=== PATIENT | male | born 1980 | race Two or more races ===

== ENCOUNTER 2023-05-09 22:47 | Inpatient (IN) | payer MEDICAID, OTHER ==
[~2023-05-09] VITALS: Ht 172.7 cm; Wt 100.2 kg
[2023-05-09] MEDS ORDERED: NALOXONE HCL 1MG/ML 2ML SYRINGE IV ONE ×2 (23:00→23:14)
[2023-05-09] MEDS ORDERED: NALOXONE HCL 1MG/ML 2ML SYRINGE ONE (23:00)
[2023-05-09 23:26] LABS: Basophils # (auto) 0.1 10 ^3/uL (0-0.2); Basophils % (auto) 0.5 % (0.0-2.0); Eosinophils # (auto) 0.2 10 ^3/uL (0-0.8); Eosinophils % (auto) 0.9 % (0.0-7.0); Hematocrit 44.4 % (41.0-53.0); Hemoglobin 14.7 g/dL (13.5-17.5); Lymphocytes # (auto) 3.4 10 ^3/uL (0.4-5.4); Lymphocytes % (auto) 16.2 % (10.0-50.0); Mean Corpuscular Hemoglobin 29.7 pg (28.0-32.0); Mean Corpuscular Hgb Conc. 33.1 g/dL (32.0-36.0); Mean Corpuscular Volume 89.8 fL (80.0-100.0); Monocytes % (auto) 4.7 % (0.0-12.0); Neutrophils # (auto) 16.3 10 ^3/uL (1.6-8.6); Neutrophils % (auto) 77.7 % (37.0-80.0); Red Blood Cells 4.94 10^6/uL (4.5-5.90); Red Cell Distribution Width 13.1 % (11.8-14.3)
[2023-05-09 23:44] LABS: Alanine Aminotransferase 151 U/L (7-40); Albumin 4.5 g/dL (3.2-4.8); Alkaline Phosphatase 135 U/L (46-116); Anion Gap 7 (5-15); Aspartate Aminotransferase 212 U/L (13-40); BUN/Creatinine Ratio 11.2 (10.0-20.0); Blood Alcohol < 3.0 mg/dL (<10); Blood Urea Nitrogen 10 mg/dL (9-23); Calcium 8.3 mg/dL (8.7-10.4); Carbon Dioxide 23 mmol/L (20-30); Chloride 110 mmol/L (98-107); Glucose 193 mg/dL (74-106); Potassium 3.7 mmol/L (3.5-5.1); Sodium 140 mmol/L (136-145)
[2023-05-09 23:45] LABS: Bilirubin, Total 0.4 mg/dL (0.2-1.0)
[2023-05-10] VITALS (13 sets, daily range): BP systolic 112–150; BP diastolic 33–52; PULSE 66–102; RESP 20–22; TEMP 98.9; O2SAT 86–97
[2023-05-10] MEDS ORDERED: ROCURONIUM 10MG/ML 10ML VIAL IV ONE
[2023-05-10] MEDS ORDERED: ETOMIDATE (2MG/ML) 20ML VIAL IV ONE
[2023-05-10] MEDS ORDERED: NALOXONE HCL 0.4 MG/ML VIAL IV ONE
[2023-05-10 00:09] LABS: INR 1.13 (0.9-1.15); Partial Thromboplastin Time 24.1 SEC (24.5-34.5); Prothrombin Time 11.8 sec (9.3-11.8)
[2023-05-10] MEDS: PROPOFOL 100 ML IV SCH (00:24)
[2023-05-10] MEDS ORDERED: ACETAMINOPHEN 650 MG RECT SUPP PR ONE (00:30)
[2023-05-10] MEDS ORDERED: PANTOPRAZOLE 40 MG/10 ML VIAL INJ IV ONE (00:30)
[2023-05-10] MEDS ORDERED: FUROSEMIDE 40 MG/4 ML VIAL IV ONE (00:30)
[2023-05-10] MEDS ORDERED: NITROGLYCERIN 0.2MG/HR TOPICAL PATCH TD ONE (00:30)
[2023-05-10] MEDS ORDERED: AZITHROMYCIN 500MG/ 250ML 250 ML IV ONE (00:30)
[2023-05-10] MEDS ORDERED: cefTRIAXone 1GM/50ML D5W 50 ML IV ONE (00:30)
[2023-05-10] MEDS ORDERED: ONDANSETRON HCL 4 MG/2 ML VIAL IV ONE (00:30)
[2023-05-10] MEDS ORDERED: CLINDAMYCIN 600MG IV 50 ML IV ONE (00:30)
[2023-05-10 01:07] LABS: Blood Alcohol < 3.0 mg/dL (<10); Magnesium 1.8 mg/dL (1.6-2.6)
[2023-05-10 01:17] LABS: Base Excess -5.4 mmol/L (-2.0-2.0)
[2023-05-10 01:21] LABS: INR 1.11 (0.9-1.15); Partial Thromboplastin Time 24.3 SEC (24.5-34.5); Prothrombin Time 11.6 sec (9.3-11.8)
[2023-05-10 01:23] LABS: Amphetamine Screen, Urine Neg (NEGATIVE); Benzodiazephine Screen, Urine Neg (NEGATIVE)
[2023-05-10 01:24] LABS: Barbiturate Scree,Urine Neg (NEGATIVE); Cannabinoid Screen, Urine Neg (NEGATIVE); Cocaine Screen, Urine Pos (NEGATIVE); Opiate Scree,Urine Pos (NEGATIVE); Phencyclidine Screen, Urine Neg (NEGATIVE)
[2023-05-10 01:28] LABS: Urine Bacteria NONE SEEN /hpf (None Seen); Urine Blood Negative /uL (Negative); Urine Clarity Clear (Clear); Urine Color Yellow (Yellow); Urine Hyaline Cast FEW /lpf (0 - 2); Urine Protein, UAD 1+ (Negative); Urine Specific Gravity 1.019 (1.001-1.035); Urine Urobilinogen Normal (Negative); Urine WBC 1 /hpf (0 - 3); Urine pH 5.5 (5.0-8.0)
[2023-05-10] MEDS: MIDAZOLAM DRIP 50 mg/50mL 50 ML IV SCH ×3 (01:28→21:15)
[2023-05-10 01:35] LABS: COVID19 ANTIGEN SOFIA FIA NEGATIVE (NEGATIVE); Rapid Influenza A Negative (Negative); Rapid Influenza B Negative (Negative)
[2023-05-10] MEDS ORDERED: ALBUMIN 25% 100 ML IV ONE (03:30)
[2023-05-10] MEDS: NOREPINEPHRINE 8 MG/250ML KIT 250 ML IV SCH ×2 (04:25→21:10)
[2023-05-10] MEDS ORDERED: NITROGLYCERIN 0.4 MG SL TAB SL PRN (04:45)
[2023-05-10] MEDS ORDERED: MORPHINE SULFATE INJ 2 MG/ml SYRG IV PRN (04:45)
[2023-05-10] MEDS ORDERED: ONDANSETRON HCL 4 MG/2 ML VIAL IV PRN (04:45)
[2023-05-10] MEDS ORDERED: DOCUSATE SOD 100 MG CAP PO PRN (04:45)
[2023-05-10] MEDS: SODIUM CHLOR 0.9% PF (SALINE LOCK) 10ML VIAL/SYR IV SCH ×3 (05:56→21:48)
[2023-05-10 06:09] LABS: Alanine Aminotransferase 107 U/L (7-40); Alkaline Phosphatase 91 U/L (46-116); Anion Gap 9 (5-15); Aspartate Aminotransferase 116 U/L (13-40); BUN/Creatinine Ratio 11.4 (10.0-20.0); Basophils # (auto) 0 10 ^3/uL (0-0.2); Basophils % (auto) 0.2 % (0.0-2.0); Blood Urea Nitrogen 14 mg/dL (9-23); Calcium 8.6 mg/dL (8.5-10.1); Carbon Dioxide 24 mmol/L (20-30); Chloride 110 mmol/L (98-107); Eosinophils # (auto) 0 10 ^3/uL (0-0.8); Eosinophils % (auto) 0.3 % (0.0-7.0); Glucose 106 mg/dL (74-106); Hematocrit 43.5 % (41.0-53.0); Hemoglobin 14.8 g/dL (13.5-17.5); Lymphocytes # (auto) 1.4 10 ^3/uL (0.4-5.4); Lymphocytes % (auto) 9.7 % (10.0-50.0); Mean Corpuscular Hemoglobin 30.5 pg (28.0-32.0); Mean Corpuscular Volume 89.7 fL (80.0-100.0); Monocytes # (auto) 0.7 10 ^3/uL (0-1.3); Neutrophils # (auto) 12.6 10 ^3/uL (1.6-8.6); Neutrophils % (auto) 84.8 % (37.0-80.0); Nucleated Red Blood Cells % 0.1 %; Potassium 3.8 mmol/L (3.5-5.1); Red Blood Cells 4.85 10^6/uL (4.5-5.90); Red Cell Distribution Width 13.1 % (11.8-14.3); Sodium 143 mmol/L (136-145); White Blood Cell 14.9 10^3/uL (4.4-10.8)
[2023-05-10 06:10] LABS: Bilirubin, Total 0.7 mg/dL (0.2-1.0); Total Protein 6.1 g/dL (5.7-8.2)
[2023-05-10 06:12] LABS: Free T3 3.05 pg/mL (2.3-4.2); Free T4 (Free Thyroxine) 1.05 ng/dL (0.89-1.76)
[2023-05-10 06:48] LABS: Base Excess -5.7 mmol/L (-2.0-2.0)
[2023-05-10] MEDS ORDERED: cefTRIAXone 1GM/50ML D5W 50 ML IV SCH (09:00)
[2023-05-10] MEDS: HEPARIN SODIUM (PORCINE) 5000 UNITS/ML 1ML VIAL SC SCH ×2 (10:47→22:25)
[2023-05-10] MEDS: AZITHROMYCIN 500MG/ 250ML 250 ML IV SCH (10:47)
[2023-05-10] MEDS: FAMOTIDINE (10MG/ML) 2ML VL IV SCH ×2 (10:47→22:28)
[2023-05-10] MEDS: IBUPROFEN 100MG/5ML ORAL SUSP 100 MG/5 ML UD NG PRN (12:01)
[2023-05-10] MEDS: PIPERACILLIN-TAZOB 3.375GM 100 ML IV SCH ×2 (14:24→22:25)
[2023-05-10 19:52] LABS: Base Excess -2.2 mmol/L (-2.0-2.0)
[2023-05-10] MEDS: ATORVASTATIN 20 MG TAB PO SCH (22:25)
[2023-05-11] VITALS (15 sets, daily range): BP systolic 100–129; BP diastolic 23–95; PULSE 56–134; RESP 22; O2SAT 95–98
[2023-05-11] MEDS: MIDAZOLAM DRIP 50 mg/50mL 50 ML IV SCH ×7 (00:05→23:57)
[2023-05-11] MEDS: PROPOFOL 100 ML IV SCH ×4 (00:44→22:46)
[2023-05-11] MEDS ORDERED: ACETAMINOPHEN 650 MG RECT SUPP PR ONE (01:30)
[2023-05-11] MEDS: IBUPROFEN 100MG/5ML ORAL SUSP 100 MG/5 ML UD NG PRN ×2 (02:38→19:00)
[2023-05-11] MEDS ORDERED: AMIODARONE BOLUS KIT 100 ML IV ONE (03:00)
[2023-05-11] MEDS: MAGNESIUM SULFATE 1GM/100ML 100 ML IV SCH ×2 (03:10→04:00)
[2023-05-11] MEDS ORDERED: AMIODARONE 450mg/250ml AE 250 ML IV SCH ×2 (03:15→09:15)
[2023-05-11] MEDS: SODIUM CHLOR 0.9% PF (SALINE LOCK) 10ML VIAL/SYR IV SCH ×3 (05:14→22:14)
[2023-05-11 06:26] LABS: Basophils # (auto) 0 10 ^3/uL (0-0.2); Basophils % (auto) 0.2 % (0.0-2.0); Eosinophils # (auto) 0.3 10 ^3/uL (0-0.8); Eosinophils % (auto) 1.3 % (0.0-7.0); Hematocrit 38.7 % (41.0-53.0); Hemoglobin 12.8 g/dL (13.5-17.5); Lymphocytes # (auto) 3.9 10 ^3/uL (0.4-5.4); Mean Corpuscular Hemoglobin 29.7 pg (28.0-32.0); Mean Corpuscular Hgb Conc. 33.1 g/dL (32.0-36.0); Mean Corpuscular Volume 89.5 fL (80.0-100.0); Monocytes # (auto) 0.9 10 ^3/uL (0-1.3); Monocytes % (auto) 4.7 % (0.0-12.0); Neutrophils # (auto) 14.5 10 ^3/uL (1.6-8.6); Neutrophils % (auto) 73.8 % (37.0-80.0); Nucleated Red Blood Cells % 0.1 %; Red Blood Cells 4.33 10^6/uL (4.5-5.90); Red Cell Distribution Width 13.5 % (11.8-14.3); White Blood Cell 19.6 10^3/uL (4.4-10.8)
[2023-05-11] MEDS: PIPERACILLIN-TAZOB 3.375GM 100 ML IV SCH ×3 (06:31→22:31)
[2023-05-11 06:49] LABS: Alanine Aminotransferase 56 U/L (7-40); Albumin 3.6 g/dL (3.2-4.8); Alkaline Phosphatase 82 U/L (46-116); Anion Gap 8 (5-15); Aspartate Aminotransferase 28 U/L (13-40); BUN/Creatinine Ratio 14.4 (10.0-20.0); Bilirubin, Total 0.6 mg/dL (0.2-1.0); Blood Urea Nitrogen 19 mg/dL (9-23); Calcium 8.7 mg/dL (8.5-10.1); Carbon Dioxide 24 mmol/L (20-30); Chloride 109 mmol/L (98-107); Glucose 130 mg/dL (74-106); Potassium 3.3 mmol/L (3.5-5.1); Sodium 141 mmol/L (136-145); Total Protein 5.6 g/dL (5.7-8.2)
[2023-05-11 06:57] LABS: CRP High Sensitivity 18.57 mg/dL (<1.0)
[2023-05-11 07:16] LABS: Magnesium 2.3 mg/dL (1.6-2.6)
[2023-05-11 08:09] LABS: Base Excess -0.3 mmol/L (-2.0-2.0)
[2023-05-11] MEDS: AZITHROMYCIN 500MG/ 250ML 250 ML IV SCH (11:36)
[2023-05-11] MEDS: FAMOTIDINE (10MG/ML) 2ML VL IV SCH ×2 (11:36→22:13)
[2023-05-11] MEDS: HEPARIN SODIUM (PORCINE) 5000 UNITS/ML 1ML VIAL SC SCH ×2 (11:37→22:33)
[2023-05-11] MEDS ORDERED: AMIODARONE HCL 200 MG TAB GT ONE (15:30)
[2023-05-11] MEDS: POTASSIUM CHL 20MEQ/100ML 100 ML IV SCH ×3 (16:14→20:01)
[2023-05-11] MEDS: AMIODARONE HCL 200 MG TAB GT SCH (22:12)
[2023-05-11] MEDS: ATORVASTATIN 20 MG TAB PO SCH (22:15)
[2023-05-12] VITALS (13 sets, daily range): BP systolic 120–173; BP diastolic 44–71; PULSE 60–79; RESP 22; O2SAT 95–98
[2023-05-12] MEDS: NOREPINEPHRINE 8 MG/250ML KIT 250 ML IV SCH (04:15)
[2023-05-12] MEDS: MIDAZOLAM DRIP 50 mg/50mL 50 ML IV SCH ×3 (04:18→18:56)
[2023-05-12 04:24] LABS: Basophils # (auto) 0 10 ^3/uL (0-0.2); Basophils % (auto) 0.2 % (0.0-2.0); Eosinophils # (auto) 0.3 10 ^3/uL (0-0.8); Eosinophils % (auto) 2.6 % (0.0-7.0); Hematocrit 34.5 % (41.0-53.0); Hemoglobin 11.5 g/dL (13.5-17.5); Lymphocytes # (auto) 2.3 10 ^3/uL (0.4-5.4); Lymphocytes % (auto) 17.4 % (10.0-50.0); Mean Corpuscular Hemoglobin 29.5 pg (28.0-32.0); Mean Corpuscular Hgb Conc. 33.3 g/dL (32.0-36.0); Mean Corpuscular Volume 88.6 fL (80.0-100.0); Monocytes # (auto) 0.7 10 ^3/uL (0-1.3); Monocytes % (auto) 5.7 % (0.0-12.0); Neutrophils # (auto) 9.8 10 ^3/uL (1.6-8.6); Neutrophils % (auto) 74.1 % (37.0-80.0); Red Blood Cells 3.89 10^6/uL (4.5-5.90); Red Cell Distribution Width 13.5 % (11.8-14.3); White Blood Cell 13.2 10^3/uL (4.4-10.8)
[2023-05-12 04:54] LABS: Chloride 109 mmol/L (98-107); Potassium 3.7 mmol/L (3.5-5.1); Sodium 140 mmol/L (136-145)
[2023-05-12 04:55] LABS: Anion Gap 6 (5-15); Calcium 8.5 mg/dL (8.7-10.4); Carbon Dioxide 25 mmol/L (20-30)
[2023-05-12 05:00] LABS: BUN/Creatinine Ratio 14.9 (10.0-20.0); Blood Urea Nitrogen 23 mg/dL (9-23); Glucose 96 mg/dL (74-106)
[2023-05-12 05:01] LABS: Magnesium 2.1 mg/dL (1.6-2.6)
[2023-05-12] MEDS: SODIUM CHLOR 0.9% PF (SALINE LOCK) 10ML VIAL/SYR IV SCH ×3 (05:41→22:10)
[2023-05-12] MEDS: PIPERACILLIN-TAZOB 3.375GM 100 ML IV SCH ×3 (05:42→22:10)
[2023-05-12] MEDS: PROPOFOL 100 ML IV SCH ×2 (06:42→22:59)
[2023-05-12 07:11] LABS: Base Excess -1.7 mmol/L (-2.0-2.0)
[2023-05-12] MEDS: FAMOTIDINE (10MG/ML) 2ML VL IV SCH ×2 (09:55→22:10)
[2023-05-12] MEDS: AZITHROMYCIN 500MG/ 250ML 250 ML IV SCH (09:56)
[2023-05-12] MEDS: AMIODARONE HCL 200 MG TAB GT SCH ×2 (09:56→22:00)
[2023-05-12] MEDS: HEPARIN SODIUM (PORCINE) 5000 UNITS/ML 1ML VIAL SC SCH ×2 (09:56→22:12)
[2023-05-12] MEDS ORDERED: CLINIMIX PER PHARMACY 0 ML IV SCH (15:00)
[2023-05-12] MEDS ORDERED: AMINO ACID INFUSION IN D10W 1,000 ML IV NR (20:00)
[2023-05-12] MEDS ORDERED: DEXTROSE (50%) 50ML SYRG IV SCH (20:00)
[2023-05-12] MEDS: ATORVASTATIN 20 MG TAB PO SCH (22:10)
[2023-05-13] VITALS (63 sets, daily range): BP systolic 117–203; BP diastolic 36–83; PULSE 54–95; RESP 18–28; TEMP 97.7–99.9; O2SAT 92–100
[2023-05-13] MEDS ORDERED: hydrALAZINE HCL 20 MG/ML VL IV ONE (01:15)
[2023-05-13] MEDS: IBUPROFEN 100MG/5ML ORAL SUSP 100 MG/5 ML UD NG PRN (02:22)
[2023-05-13] MEDS ORDERED: dilTIAZem 25 MG/5 ML VIAL IV ONE ×2 (02:43→02:45)
[2023-05-13] MEDS: fentaNYL Drip 2500mCg/250mlNS 250 ML IV SCH (03:11)
[2023-05-13] MEDS ORDERED: ACETAMINOPHEN 650 MG RECT SUPP PR PRN (03:15)
[2023-05-13] MEDS: PROPOFOL 100 ML IV SCH ×3 (03:22→18:18)
[2023-05-13] MEDS: NOREPINEPHRINE 8 MG/250ML KIT 250 ML IV SCH (04:15)
[2023-05-13] MEDS: ACCU-CHEK COMFORT CURVE STRIP VI SCH ×4 (06:00→17:56)
[2023-05-13] MEDS: InsuLIN REG 1unit/0.01ml Soln (100units/ml) SC SCH ×4 (06:00→17:56)
[2023-05-13] MEDS: SODIUM CHLOR 0.9% PF (SALINE LOCK) 10ML VIAL/SYR IV SCH ×3 (06:12→21:27)
[2023-05-13 06:26] LABS: Alanine Aminotransferase 30 U/L (7-40); Albumin 3.7 g/dL (3.2-4.8); Alkaline Phosphatase 86 U/L (46-116); Anion Gap 7 (5-15); Aspartate Aminotransferase 18 U/L (13-40); Bilirubin, Total 0.6 mg/dL (0.2-1.0); Blood Urea Nitrogen 15 mg/dL (9-23); Calcium 8.8 mg/dL (8.5-10.1); Carbon Dioxide 25 mmol/L (20-30); Chloride 109 mmol/L (98-107); Glucose 120 mg/dL (74-106); Phosphorus 2.5 mg/dL (2.4-5.1); Potassium 3.4 mmol/L (3.5-5.1); Sodium 141 mmol/L (136-145); Triglycerides 212 mg/dL (< 150)
[2023-05-13 06:28] LABS: Basophils # (auto) 0 10 ^3/uL (0-0.2); Basophils % (auto) 0.2 % (0.0-2.0); Eosinophils # (auto) 0.2 10 ^3/uL (0-0.8); Eosinophils % (auto) 1.8 % (0.0-7.0); Hematocrit 35.1 % (41.0-53.0); Hemoglobin 11.8 g/dL (13.5-17.5); Lymphocytes # (auto) 1.4 10 ^3/uL (0.4-5.4); Lymphocytes % (auto) 11.8 % (10.0-50.0); Mean Corpuscular Hemoglobin 30.1 pg (28.0-32.0); Mean Corpuscular Hgb Conc. 33.6 g/dL (32.0-36.0); Mean Corpuscular Volume 89.7 fL (80.0-100.0); Monocytes # (auto) 0.8 10 ^3/uL (0-1.3); Monocytes % (auto) 6.5 % (0.0-12.0); Neutrophils # (auto) 9.8 10 ^3/uL (1.6-8.6); Neutrophils % (auto) 79.7 % (37.0-80.0); Nucleated Red Blood Cells % 0.1 %; Red Blood Cells 3.92 10^6/uL (4.5-5.90); Red Cell Distribution Width 13.4 % (11.8-14.3); White Blood Cell 12.3 10^3/uL (4.4-10.8)
[2023-05-13] MEDS: PIPERACILLIN-TAZOB 3.375GM 100 ML IV SCH ×3 (06:38→22:40)
[2023-05-13] MEDS: MIDAZOLAM DRIP 50 mg/50mL 50 ML IV SCH ×3 (06:39→21:30)
[2023-05-13 07:06] LABS: Magnesium 2.1 mg/dL (1.6-2.6)
[2023-05-13 08:37] LABS: Base Excess -1.5 mmol/L (-2.0-2.0)
[2023-05-13] MEDS: AMIODARONE HCL 200 MG TAB GT SCH ×2 (10:00→21:55)
[2023-05-13] MEDS: FAMOTIDINE (10MG/ML) 2ML VL IV SCH ×2 (11:01→22:17)
[2023-05-13] MEDS: HEPARIN SODIUM (PORCINE) 5000 UNITS/ML 1ML VIAL SC SCH (11:04)
[2023-05-13] MEDS: POTASSIUM CHL 20MEQ/100ML 100 ML IV SCH ×3 (11:05→13:55)
[2023-05-13] MEDS: AZITHROMYCIN 500MG/ 250ML 250 ML IV SCH (12:37)
[2023-05-13 16:53] LABS: Hepatitis B Core Total AB Negative (Negative)
[2023-05-13 16:54] LABS: Hepatitis A Total Antibody Positive (Negative); Hepatitis B Surface Antibody Negative (Negative); Hepatitis B Surface Antigen Negative (Negative); Hepatitis C Antibody Negative (Negative)
[2023-05-13] MEDS ORDERED: ENOXAPARIN SOD 40 MG/0.4 ML SYRINGE SC ONE (21:00)
[2023-05-13] MEDS: hydrALAZINE HCL 20 MG/ML VL IV PRN (21:09)
[2023-05-13] MEDS: ATORVASTATIN 20 MG TAB PO SCH (21:55)
[2023-05-14] VITALS (108 sets, daily range): BP systolic 102–222; BP diastolic 40–118; PULSE 61–154; RESP 13–39; TEMP 98.2–100.6; O2SAT 92–100
[2023-05-14] MEDS: PROPOFOL 100 ML IV SCH ×3 (02:16→23:21)
[2023-05-14] MEDS: fentaNYL Drip 2500mCg/250mlNS 250 ML IV SCH (02:45)
[2023-05-14] MEDS: NOREPINEPHRINE 8 MG/250ML KIT 250 ML IV SCH (04:15)
[2023-05-14 04:25] LABS: Alanine Aminotransferase 20 U/L (7-40); Alkaline Phosphatase 86 U/L (46-116); Anion Gap 7 (5-15); Aspartate Aminotransferase 15 U/L (13-40); BUN/Creatinine Ratio 13.6 (10.0-20.0); Blood Urea Nitrogen 12 mg/dL (9-23); Calcium 8.5 mg/dL (8.7-10.4); Carbon Dioxide 25 mmol/L (20-30); Chloride 109 mmol/L (98-107); Magnesium 1.8 mg/dL (1.6-2.6); Potassium 3.7 mmol/L (3.5-5.1); Sodium 141 mmol/L (136-145)
[2023-05-14 04:26] LABS: Albumin 3.7 g/dL (3.2-4.8); Bilirubin, Total 0.6 mg/dL (0.2-1.0); Phosphorus 3.4 mg/dL (2.4-5.1); Total Protein 5.9 g/dL (5.7-8.2)
[2023-05-14 04:30] LABS: Glucose 88 mg/dL (74-106)
[2023-05-14 04:46] LABS: Basophils # (auto) 0 10 ^3/uL (0-0.2); Basophils % (auto) 0.4 % (0.0-2.0); Eosinophils # (auto) 0.3 10 ^3/uL (0-0.8); Hematocrit 32.5 % (41.0-53.0); Hemoglobin 11.2 g/dL (13.5-17.5); Lymphocytes # (auto) 2.1 10 ^3/uL (0.4-5.4); Lymphocytes % (auto) 21.3 % (10.0-50.0); Mean Corpuscular Hemoglobin 30.6 pg (28.0-32.0); Mean Corpuscular Hgb Conc. 34.6 g/dL (32.0-36.0); Mean Corpuscular Volume 88.5 fL (80.0-100.0); Neutrophils # (auto) 6.6 10 ^3/uL (1.6-8.6); Neutrophils % (auto) 65.3 % (37.0-80.0); Nucleated Red Blood Cells % 0.1 %; Red Blood Cells 3.67 10^6/uL (4.5-5.90); Red Cell Distribution Width 12.9 % (11.8-14.3); White Blood Cell 10.1 10^3/uL (4.4-10.8)
[2023-05-14] MEDS: PIPERACILLIN-TAZOB 3.375GM 100 ML IV SCH ×3 (05:30→21:37)
[2023-05-14] MEDS: hydrALAZINE HCL 20 MG/ML VL IV PRN (05:32)
[2023-05-14] MEDS: SODIUM CHLOR 0.9% PF (SALINE LOCK) 10ML VIAL/SYR IV SCH ×3 (05:34→21:38)
[2023-05-14] MEDS: InsuLIN REG 1unit/0.01ml Soln (100units/ml) SC SCH ×5 (05:34→23:30)
[2023-05-14] MEDS: ACCU-CHEK COMFORT CURVE STRIP VI SCH ×5 (05:34→23:30)
[2023-05-14] MEDS ORDERED: MAGNESIUM SULFATE 1GM/100ML 100 ML IV ONE (08:30)
[2023-05-14] MEDS: AMIODARONE HCL 200 MG TAB GT SCH ×2 (09:27→21:38)
[2023-05-14] MEDS ORDERED: cloNIDine HCL 0.1 MG TAB PO PRN (09:30)
[2023-05-14] MEDS: AZITHROMYCIN 500MG/ 250ML 250 ML IV SCH (09:32)
[2023-05-14] MEDS: FAMOTIDINE (10MG/ML) 2ML VL IV SCH ×2 (09:32→21:37)
[2023-05-14] MEDS: METOPROLOL TARTRATE 25 MG TAB GT SCH ×2 (09:32→21:38)
[2023-05-14] MEDS: ENOXAPARIN SOD 40 MG/0.4 ML SYRINGE SC SCH (09:33)
[2023-05-14] MEDS ORDERED: LORazepam 2MG/ML-1ML VIAL IV ONE (11:00)
[2023-05-14] MEDS ORDERED: hydrALAZINE HCL 20 MG/ML VL IV ONE (11:00)
[2023-05-14] MEDS ORDERED: METOPROLOL TARTRATE 1MG/1ML-5ML VIAL IV ONE ×2 (11:50→12:30)
[2023-05-14] MEDS ORDERED: Jevity 1.2 Cal/Fiber 1 Liter GT SCH (16:00)
[2023-05-14] MEDS: chlordiazePOXIDE HCL 5 MG CAP PO SCH (21:38)
[2023-05-14] MEDS: ATORVASTATIN 20 MG TAB PO SCH (21:38)
[2023-05-15] VITALS (109 sets, daily range): BP systolic 86–225; BP diastolic 34–92; PULSE 74–120; RESP 11–34; TEMP 99.1–103.6; O2SAT 84–100
[2023-05-15] MEDS: MIDAZOLAM DRIP 50 mg/50mL 50 ML IV SCH ×2 (00:15→13:20)
[2023-05-15] MEDS: fentaNYL Drip 2500mCg/250mlNS 250 ML IV SCH ×2 (02:45→04:51)
[2023-05-15 03:20] LABS: Basophils # (auto) 0 10 ^3/uL (0-0.2); Basophils % (auto) 0.2 % (0.0-2.0); Eosinophils # (auto) 0.3 10 ^3/uL (0-0.8); Eosinophils % (auto) 1.6 % (0.0-7.0); Hematocrit 38.1 % (41.0-53.0); Hemoglobin 12.7 g/dL (13.5-17.5); Lymphocytes # (auto) 2.1 10 ^3/uL (0.4-5.4); Lymphocytes % (auto) 13.1 % (10.0-50.0); Mean Corpuscular Hemoglobin 29.9 pg (28.0-32.0); Mean Corpuscular Hgb Conc. 33.2 g/dL (32.0-36.0); Monocytes # (auto) 1.6 10 ^3/uL (0-1.3); Neutrophils # (auto) 11.9 10 ^3/uL (1.6-8.6); Neutrophils % (auto) 75.1 % (37.0-80.0); Red Blood Cells 4.23 10^6/uL (4.5-5.90); Red Cell Distribution Width 13.1 % (11.8-14.3); White Blood Cell 15.8 10^3/uL (4.4-10.8)
[2023-05-15 03:35] LABS: Alanine Aminotransferase 19 U/L (7-40); Albumin 4.1 g/dL (3.2-4.8); Alkaline Phosphatase 99 U/L (46-116); Anion Gap 8 (5-15); Aspartate Aminotransferase 19 U/L (13-40); BUN/Creatinine Ratio 14.1 (10.0-20.0); Blood Urea Nitrogen 10 mg/dL (9-23); Calcium 8.8 mg/dL (8.7-10.4); Carbon Dioxide 25 mmol/L (20-30); Chloride 107 mmol/L (98-107); Potassium 3.7 mmol/L (3.5-5.1); Sodium 140 mmol/L (136-145)
[2023-05-15 03:36] LABS: Bilirubin, Total 0.5 mg/dL (0.2-1.0); Total Protein 6.7 g/dL (5.7-8.2)
[2023-05-15] MEDS: NOREPINEPHRINE 8 MG/250ML KIT 250 ML IV SCH (04:15)
[2023-05-15 04:54] LABS: Glucose 107 mg/dL (74-106)
[2023-05-15] MEDS: chlordiazePOXIDE HCL 5 MG CAP PO SCH ×3 (05:34→21:29)
[2023-05-15] MEDS: ACCU-CHEK COMFORT CURVE STRIP VI SCH ×3 (05:34→17:53)
[2023-05-15] MEDS: SODIUM CHLOR 0.9% PF (SALINE LOCK) 10ML VIAL/SYR IV SCH ×4 (05:34→22:00)
[2023-05-15] MEDS: PIPERACILLIN-TAZOB 3.375GM 100 ML IV SCH (05:34)
[2023-05-15] MEDS: InsuLIN REG 1unit/0.01ml Soln (100units/ml) SC SCH ×3 (05:34→18:00)
[2023-05-15 07:51] LABS: Base Excess -2.2 mmol/L (-2.0-2.0)
[2023-05-15] MEDS: ENOXAPARIN SOD 40 MG/0.4 ML SYRINGE SC SCH (10:00)
[2023-05-15] MEDS: METOPROLOL TARTRATE 25 MG TAB GT SCH ×2 (10:26→21:29)
[2023-05-15] MEDS: FAMOTIDINE (10MG/ML) 2ML VL IV SCH (10:27)
[2023-05-15] MEDS: AMIODARONE HCL 200 MG TAB GT SCH ×2 (10:27→21:29)
[2023-05-15] MEDS: PROPOFOL 100 ML IV SCH (10:31)
[2023-05-15] MEDS ORDERED: PANTOPRAZOLE 40 MG/10 ML VIAL INJ IV ONE (11:45)
[2023-05-15] MEDS ORDERED: CEFEPIME 2GM/50ML NS 50 ML IV ONE (12:00)
[2023-05-15] MEDS ORDERED: LIDOCAINE 1% (LOCAL ANESTH.) PF 5ml SDV ID ONE (15:00)
[2023-05-15] MEDS ORDERED: POTASSIUM CHL 20MEQ/50ML 50 ML IV ONE (15:30)
[2023-05-15] MEDS: DOXYCYCLINE 100MG/250ML 250 ML IV SCH (16:15)
[2023-05-15] MEDS ORDERED: ACETAMINOPHEN 325 MG TAB PO ONE (16:22)
[2023-05-15] MEDS: ACETAMINOPHEN 325 MG TAB PO PRN (16:42)
[2023-05-15] MEDS: ATORVASTATIN 20 MG TAB PO SCH (21:30)
[2023-05-15] MEDS: CEFEPIME 2GM/50ML NS 50 ML IV SCH (21:32)
[2023-05-15] MEDS: IBUPROFEN 100MG/5ML ORAL SUSP 100 MG/5 ML UD NG PRN (21:33)
[2023-05-16] VITALS (108 sets, daily range): BP systolic 78–184; BP diastolic 25–130; PULSE 59–126; RESP 7–35; TEMP 97.7–102.4; O2SAT 86–100
[2023-05-16] MEDS: DOXYCYCLINE 100MG/250ML 250 ML IV SCH ×2 (00:45→12:19)
[2023-05-16 02:15] LABS: Basophils # (auto) 0 10 ^3/uL (0-0.2); Basophils % (auto) 0.2 % (0.0-2.0); Eosinophils # (auto) 0.2 10 ^3/uL (0-0.8); Eosinophils % (auto) 0.9 % (0.0-7.0); Hematocrit 33.2 % (41.0-53.0); Lymphocytes # (auto) 1.7 10 ^3/uL (0.4-5.4); Lymphocytes % (auto) 7.5 % (10.0-50.0); Mean Corpuscular Hemoglobin 29.5 pg (28.0-32.0); Mean Corpuscular Hgb Conc. 33.2 g/dL (32.0-36.0); Monocytes # (auto) 2.3 10 ^3/uL (0-1.3); Monocytes % (auto) 10.1 % (0.0-12.0); Neutrophils # (auto) 18.5 10 ^3/uL (1.6-8.6); Neutrophils % (auto) 81.3 % (37.0-80.0); Red Blood Cells 3.73 10^6/uL (4.5-5.90); Red Cell Distribution Width 13.2 % (11.8-14.3); White Blood Cell 22.8 10^3/uL (4.4-10.8)
[2023-05-16 02:34] LABS: Alanine Aminotransferase 16 U/L (7-40); Albumin 3.7 g/dL (3.2-4.8); Alkaline Phosphatase 95 U/L (46-116); Anion Gap 7 (5-15); Aspartate Aminotransferase 17 U/L (13-40); BUN/Creatinine Ratio 14.6 (10.0-20.0); Bilirubin, Total 0.5 mg/dL (0.2-1.0); Blood Urea Nitrogen 13 mg/dL (9-23); Calcium 9.1 mg/dL (8.5-10.1); Carbon Dioxide 25 mmol/L (20-30); Chloride 105 mmol/L (98-107); Glucose 110 mg/dL (74-106); Phosphorus 4.1 mg/dL (2.4-5.1); Potassium 3.9 mmol/L (3.5-5.1); Sodium 137 mmol/L (136-145); Total Protein 6.1 g/dL (5.7-8.2)
[2023-05-16] MEDS: NOREPINEPHRINE 8 MG/250ML KIT 250 ML IV SCH (04:15)
[2023-05-16] MEDS: CEFEPIME 2GM/50ML NS 50 ML IV SCH ×3 (05:15→21:52)
[2023-05-16] MEDS: SODIUM CHLOR 0.9% PF (SALINE LOCK) 10ML VIAL/SYR IV SCH ×5 (05:16→21:54)
[2023-05-16] MEDS: chlordiazePOXIDE HCL 5 MG CAP PO SCH ×3 (05:18→21:53)
[2023-05-16] MEDS: ACCU-CHEK COMFORT CURVE STRIP VI SCH ×5 (05:19→23:25)
[2023-05-16] MEDS: InsuLIN REG 1unit/0.01ml Soln (100units/ml) SC SCH ×5 (05:28→23:26)
[2023-05-16 07:45] LABS: Base Excess -2.2 mmol/L (-2.0-2.0)
[2023-05-16] MEDS: ENOXAPARIN SOD 40 MG/0.4 ML SYRINGE SC SCH (09:23)
[2023-05-16] MEDS: PANTOPRAZOLE 40 MG/10 ML VIAL INJ IV SCH (09:23)
[2023-05-16] MEDS: AMIODARONE HCL 200 MG TAB GT SCH ×2 (09:24→21:52)
[2023-05-16] MEDS: METOPROLOL TARTRATE 25 MG TAB GT SCH ×2 (09:25→21:52)
[2023-05-16] MEDS: ACETAMINOPHEN 325 MG TAB PO PRN ×2 (10:10→22:46)
[2023-05-16] MEDS: PROPOFOL 100 ML IV SCH ×2 (12:19→20:58)
[2023-05-16] MEDS: MIDAZOLAM DRIP 50 mg/50mL 50 ML IV SCH ×2 (12:26→19:37)
[2023-05-16 13:36] LABS: Magnesium 1.8 mg/dL (1.6-2.6)
[2023-05-16] MEDS: fentaNYL Drip 2500mCg/250mlNS 250 ML IV SCH (13:50)
[2023-05-16] MEDS ORDERED: VANCOMYCIN PER PHARMACY 0 MG IV SCH (20:00)
[2023-05-16] MEDS: VANCOMYCIN 1GM/200ML 250 ML IV SCH ×2 (20:00→20:57)
[2023-05-16] MEDS: ATORVASTATIN 20 MG TAB PO SCH (21:52)
[2023-05-17] VITALS (109 sets, daily range): BP systolic 81–181; BP diastolic 30–86; PULSE 64–106; RESP 16–49; TEMP 97.9–101.1; O2SAT 87–100
[2023-05-17] MEDS: PROPOFOL 100 ML IV SCH ×8 (00:09→23:41)
[2023-05-17] MEDS: fentaNYL Drip 2500mCg/250mlNS 250 ML IV SCH ×2 (01:10→14:36)
[2023-05-17] MEDS: NOREPINEPHRINE 8 MG/250ML KIT 250 ML IV SCH (03:13)
[2023-05-17] MEDS: IBUPROFEN 100MG/5ML ORAL SUSP 100 MG/5 ML UD NG PRN ×2 (03:14→20:36)
[2023-05-17] MEDS: MIDAZOLAM DRIP 50 mg/50mL 50 ML IV SCH ×2 (04:04→15:33)
[2023-05-17 04:24] LABS: Calcium 8.9 mg/dL (8.7-10.4); Chloride 108 mmol/L (98-107); Potassium 4.1 mmol/L (3.5-5.1); Sodium 139 mmol/L (136-145)
[2023-05-17 04:25] LABS: Anion Gap 6 (5-15); Carbon Dioxide 25 mmol/L (20-30)
[2023-05-17 04:30] LABS: BUN/Creatinine Ratio 17.7 (10.0-20.0); Blood Urea Nitrogen 11 mg/dL (9-23); Glucose 95 mg/dL (74-106)
[2023-05-17] MEDS: VANCOMYCIN 1GM/200ML 250 ML IV SCH ×4 (04:48→20:51)
[2023-05-17 05:00] LABS: Hemoglobin 11.5 g/dL (13.5-17.5); Mean Corpuscular Hemoglobin 29.6 pg (28.0-32.0); Mean Corpuscular Hgb Conc. 32.9 g/dL (32.0-36.0); Red Blood Cells 3.89 10^6/uL (4.5-5.90); Red Cell Distribution Width 13.4 % (11.8-14.3); White Blood Cell 16.7 10^3/uL (4.4-10.8)
[2023-05-17 05:08] LABS: Band Neutrophils % (manual) 0; Basophils % (manual) 0 (0.0-2.0); Blast Cells 0; Myelocytes % 0; Promyelocytes % 0; Reactive Lymphocytes 0
[2023-05-17] MEDS: CEFEPIME 2GM/50ML NS 50 ML IV SCH ×3 (05:25→20:52)
[2023-05-17] MEDS: SODIUM CHLOR 0.9% PF (SALINE LOCK) 10ML VIAL/SYR IV SCH ×5 (05:25→20:53)
[2023-05-17] MEDS: chlordiazePOXIDE HCL 5 MG CAP PO SCH ×3 (05:25→20:52)
[2023-05-17] MEDS: ACCU-CHEK COMFORT CURVE STRIP VI SCH ×4 (05:25→23:52)
[2023-05-17] MEDS: InsuLIN REG 1unit/0.01ml Soln (100units/ml) SC SCH ×4 (05:44→23:52)
[2023-05-17 07:15] LABS: Eosinophils % (manual) 1 (0-7); Lymphocytes % (manual) 9 (10.0-50.0); Metamyelocytes % 2; Monocytes % (manual) 3 (0-12); Platelet Estimate Adequate
[2023-05-17 07:16] LABS: Giant Platelets Few; RBC Morphology Normal
[2023-05-17] MEDS: PANTOPRAZOLE 40 MG/10 ML VIAL INJ IV SCH (08:26)
[2023-05-17] MEDS: ENOXAPARIN SOD 40 MG/0.4 ML SYRINGE SC SCH (08:27)
[2023-05-17] MEDS: AMIODARONE HCL 200 MG TAB GT SCH ×2 (08:27→20:52)
[2023-05-17] MEDS: METOPROLOL TARTRATE 25 MG TAB GT SCH ×2 (10:00→20:52)
[2023-05-17 11:27] LABS: Base Excess -2.2 mmol/L (-2.0-2.0)
[2023-05-17] MEDS: ACETAMINOPHEN 325 MG TAB PO PRN (14:52)
[2023-05-17] MEDS: ATORVASTATIN 20 MG TAB PO SCH (20:52)
[2023-05-18] VITALS (108 sets, daily range): BP systolic 93–181; BP diastolic 35–84; PULSE 71–126; RESP 14–26; TEMP 98.2–101.1; O2SAT 88–100
[2023-05-18] MEDS: MIDAZOLAM DRIP 50 mg/50mL 50 ML IV SCH ×3 (01:03→10:59)
[2023-05-18] MEDS: fentaNYL Drip 2500mCg/250mlNS 250 ML IV SCH ×2 (01:07→11:01)
[2023-05-18] MEDS: PROPOFOL 100 ML IV SCH ×6 (02:32→17:26)
[2023-05-18] MEDS: NOREPINEPHRINE 8 MG/250ML KIT 250 ML IV SCH (03:39)
[2023-05-18] MEDS: VANCOMYCIN 1GM/200ML 250 ML IV SCH ×3 (04:27→20:43)
[2023-05-18 04:42] LABS: Chloride 108 mmol/L (98-107); Potassium 3.6 mmol/L (3.5-5.1); Sodium 140 mmol/L (136-145)
[2023-05-18 04:43] LABS: Anion Gap 9 (5-15); Calcium 9.1 mg/dL (8.7-10.4); Carbon Dioxide 23 mmol/L (20-30)
[2023-05-18 04:45] LABS: Base Excess -1.7 mmol/L (-2.0-2.0)
[2023-05-18 04:48] LABS: BUN/Creatinine Ratio 18.3 (10.0-20.0); Blood Urea Nitrogen 11 mg/dL (9-23); Glucose 90 mg/dL (74-106)
[2023-05-18 05:10] LABS: Basophils # (auto) 0.1 10 ^3/uL (0-0.2); Basophils % (auto) 0.5 % (0.0-2.0); Eosinophils # (auto) 0.3 10 ^3/uL (0-0.8); Eosinophils % (auto) 2.6 % (0.0-7.0); Hematocrit 35.8 % (41.0-53.0); Hemoglobin 11.7 g/dL (13.5-17.5); Lymphocytes # (auto) 2.3 10 ^3/uL (0.4-5.4); Lymphocytes % (auto) 19.1 % (10.0-50.0); Mean Corpuscular Hemoglobin 29.5 pg (28.0-32.0); Mean Corpuscular Hgb Conc. 32.8 g/dL (32.0-36.0); Neutrophils # (auto) 8.5 10 ^3/uL (1.6-8.6); Neutrophils % (auto) 69.8 % (37.0-80.0); Red Blood Cells 3.98 10^6/uL (4.5-5.90); Red Cell Distribution Width 13.2 % (11.8-14.3); White Blood Cell 12.2 10^3/uL (4.4-10.8)
[2023-05-18] MEDS: chlordiazePOXIDE HCL 5 MG CAP PO SCH ×3 (05:23→21:58)
[2023-05-18] MEDS: ACCU-CHEK COMFORT CURVE STRIP VI SCH ×4 (05:23→23:51)
[2023-05-18] MEDS: SODIUM CHLOR 0.9% PF (SALINE LOCK) 10ML VIAL/SYR IV SCH ×5 (05:23→21:58)
[2023-05-18] MEDS: CEFEPIME 2GM/50ML NS 50 ML IV SCH ×3 (05:23→21:57)
[2023-05-18] MEDS: InsuLIN REG 1unit/0.01ml Soln (100units/ml) SC SCH ×4 (05:25→23:50)
[2023-05-18 07:26] LABS: Base Excess -0.3 mmol/L (-2.0-2.0)
[2023-05-18] MEDS: METOPROLOL TARTRATE 25 MG TAB GT SCH ×2 (10:00→21:57)
[2023-05-18] MEDS ORDERED: FUROSEMIDE 40 MG/4 ML VIAL IV ONE (10:15)
[2023-05-18] MEDS: PANTOPRAZOLE 40 MG/10 ML VIAL INJ IV SCH (10:53)
[2023-05-18] MEDS: AMIODARONE HCL 200 MG TAB GT SCH ×2 (10:53→21:57)
[2023-05-18] MEDS: ENOXAPARIN SOD 40 MG/0.4 ML SYRINGE SC SCH (10:54)
[2023-05-18] MEDS: FUROSEMIDE 40 MG/4 ML VIAL IV SCH (18:29)
[2023-05-18] MEDS: ATORVASTATIN 20 MG TAB PO SCH (21:58)
[2023-05-18] MEDS: IBUPROFEN 100MG/5ML ORAL SUSP 100 MG/5 ML UD NG PRN (22:29)
[2023-05-19] VITALS (96 sets, daily range): BP systolic 99–166; BP diastolic 36–69; PULSE 58–99; RESP 9–32; TEMP 98.1–100.8; O2SAT 93–100
[2023-05-19 02:31] LABS: Basophils # (auto) 0 10 ^3/uL (0-0.2); Basophils % (auto) 0.3 % (0.0-2.0); Eosinophils # (auto) 0.3 10 ^3/uL (0-0.8); Eosinophils % (auto) 3.2 % (0.0-7.0); Hematocrit 30.9 % (41.0-53.0); Hemoglobin 10.3 g/dL (13.5-17.5); Mean Corpuscular Hemoglobin 30.1 pg (28.0-32.0); Mean Corpuscular Hgb Conc. 33.4 g/dL (32.0-36.0); Mean Corpuscular Volume 90.3 fL (80.0-100.0); Monocytes # (auto) 0.9 10 ^3/uL (0-1.3); Monocytes % (auto) 8.9 % (0.0-12.0); Neutrophils # (auto) 7.3 10 ^3/uL (1.6-8.6); Neutrophils % (auto) 68.6 % (37.0-80.0); Red Blood Cells 3.42 10^6/uL (4.5-5.90); Red Cell Distribution Width 13.2 % (11.8-14.3); White Blood Cell 10.6 10^3/uL (4.4-10.8)
[2023-05-19 02:42] LABS: Alanine Aminotransferase 20 U/L (7-40); Albumin 3.6 g/dL (3.2-4.8); Alkaline Phosphatase 145 U/L (46-116); Anion Gap 7 (5-15); Aspartate Aminotransferase 28 U/L (13-40); BUN/Creatinine Ratio 21.4 (10.0-20.0); Bilirubin, Total 0.3 mg/dL (0.2-1.0); Blood Urea Nitrogen 15 mg/dL (9-23); Calcium 8.7 mg/dL (8.7-10.4); Carbon Dioxide 26 mmol/L (20-30); Chloride 106 mmol/L (98-107); Glucose 110 mg/dL (74-106); Magnesium 1.7 mg/dL (1.6-2.6); Potassium 3.5 mmol/L (3.5-5.1); Sodium 139 mmol/L (136-145)
[2023-05-19 02:43] LABS: Total Protein 6.1 g/dL (5.7-8.2)
[2023-05-19] MEDS: NOREPINEPHRINE 8 MG/250ML KIT 250 ML IV SCH (04:15)
[2023-05-19] MEDS: VANCOMYCIN 1GM/200ML 250 ML IV SCH ×3 (04:57→21:00)
[2023-05-19] MEDS: CEFEPIME 2GM/50ML NS 50 ML IV SCH ×3 (05:00→21:33)
[2023-05-19] MEDS: SODIUM CHLOR 0.9% PF (SALINE LOCK) 10ML VIAL/SYR IV SCH ×5 (05:01→21:33)
[2023-05-19] MEDS: FUROSEMIDE 40 MG/4 ML VIAL IV SCH ×2 (05:01→17:35)
[2023-05-19] MEDS: ACCU-CHEK COMFORT CURVE STRIP VI SCH ×3 (05:01→17:36)
[2023-05-19] MEDS: chlordiazePOXIDE HCL 5 MG CAP PO SCH ×3 (05:01→21:34)
[2023-05-19] MEDS: InsuLIN REG 1unit/0.01ml Soln (100units/ml) SC SCH ×3 (05:02→17:37)
[2023-05-19] MEDS: MIDAZOLAM DRIP 50 mg/50mL 50 ML IV SCH ×4 (08:00→16:49)
[2023-05-19] MEDS: PROPOFOL 100 ML IV SCH ×4 (08:00→16:49)
[2023-05-19 08:23] LABS: Base Excess 1.8 mmol/L (-2.0-2.0)
[2023-05-19] MEDS: METOPROLOL TARTRATE 25 MG TAB GT SCH ×2 (10:00→21:14)
[2023-05-19] MEDS: PANTOPRAZOLE 40 MG/10 ML VIAL INJ IV SCH (10:14)
[2023-05-19] MEDS: ENOXAPARIN SOD 40 MG/0.4 ML SYRINGE SC SCH (10:14)
[2023-05-19] MEDS: AMIODARONE HCL 200 MG TAB GT SCH ×2 (10:16→21:33)
[2023-05-19] MEDS: LACTULOSE 20Gm/30ML SOLN PO PRN (10:30)
[2023-05-19] MEDS: fentaNYL Drip 2500mCg/250mlNS 250 ML IV SCH ×2 (11:34→18:41)
[2023-05-19] MEDS: IBUPROFEN 100MG/5ML ORAL SUSP 100 MG/5 ML UD NG PRN (18:23)
[2023-05-19] MEDS: ATORVASTATIN 20 MG TAB PO SCH (21:34)
[2023-05-20] VITALS (106 sets, daily range): BP systolic 86–230; BP diastolic 32–103; PULSE 63–121; RESP 0–30; TEMP 96.1–102.2; O2SAT 90–100
[2023-05-20 02:57] LABS: Basophils # (auto) 0 10 ^3/uL (0-0.2); Basophils % (auto) 0.4 % (0.0-2.0); Eosinophils # (auto) 0.3 10 ^3/uL (0-0.8); Hematocrit 33.4 % (41.0-53.0); Hemoglobin 10.9 g/dL (13.5-17.5); Lymphocytes # (auto) 1.6 10 ^3/uL (0.4-5.4); Mean Corpuscular Hgb Conc. 32.5 g/dL (32.0-36.0); Mean Corpuscular Volume 89.3 fL (80.0-100.0); Monocytes # (auto) 1.2 10 ^3/uL (0-1.3); Monocytes % (auto) 8.8 % (0.0-12.0); Neutrophils # (auto) 10.2 10 ^3/uL (1.6-8.6); Neutrophils % (auto) 76.8 % (37.0-80.0); Red Blood Cells 3.74 10^6/uL (4.5-5.90); Red Cell Distribution Width 13.2 % (11.8-14.3); White Blood Cell 13.2 10^3/uL (4.4-10.8)
[2023-05-20 03:06] LABS: Alanine Aminotransferase 25 U/L (7-40); Albumin 3.6 g/dL (3.2-4.8); Alkaline Phosphatase 170 U/L (46-116); Anion Gap 6 (5-15); Aspartate Aminotransferase 29 U/L (13-40); BUN/Creatinine Ratio 24.6 (10.0-20.0); Bilirubin, Total 0.3 mg/dL (0.2-1.0); Blood Urea Nitrogen 15 mg/dL (9-23); Calcium 8.8 mg/dL (8.7-10.4); Carbon Dioxide 26 mmol/L (20-30); Chloride 107 mmol/L (98-107); Glucose 102 mg/dL (74-106); Magnesium 1.7 mg/dL (1.6-2.6); Potassium 3.7 mmol/L (3.5-5.1); Sodium 139 mmol/L (136-145); Total Protein 6.5 g/dL (5.7-8.2)
[2023-05-20] MEDS: NOREPINEPHRINE 8 MG/250ML KIT 250 ML IV SCH (04:00)
[2023-05-20] MEDS: IBUPROFEN 100MG/5ML ORAL SUSP 100 MG/5 ML UD NG PRN (04:09)
[2023-05-20] MEDS: VANCOMYCIN 1GM/200ML 250 ML IV SCH ×3 (04:41→20:41)
[2023-05-20] MEDS: CEFEPIME 2GM/50ML NS 50 ML IV SCH ×3 (05:28→21:19)
[2023-05-20] MEDS: SODIUM CHLOR 0.9% PF (SALINE LOCK) 10ML VIAL/SYR IV SCH ×5 (05:28→21:20)
[2023-05-20] MEDS: FUROSEMIDE 40 MG/4 ML VIAL IV SCH ×2 (05:29→18:20)
[2023-05-20] MEDS: chlordiazePOXIDE HCL 5 MG CAP PO SCH ×3 (05:29→21:20)
[2023-05-20] MEDS: ACCU-CHEK COMFORT CURVE STRIP VI SCH ×5 (05:45→23:58)
[2023-05-20] MEDS: InsuLIN REG 1unit/0.01ml Soln (100units/ml) SC SCH ×5 (05:58→23:58)
[2023-05-20 07:42] LABS: Base Excess -0.4 mmol/L (-2.0-2.0)
[2023-05-20] MEDS: MIDAZOLAM DRIP 50 mg/50mL 50 ML IV SCH ×4 (08:09→19:32)
[2023-05-20] MEDS: fentaNYL Drip 2500mCg/250mlNS 250 ML IV SCH ×2 (09:06→16:28)
[2023-05-20] MEDS: PROPOFOL 100 ML IV SCH ×4 (09:52→18:17)
[2023-05-20] MEDS: ENOXAPARIN SOD 40 MG/0.4 ML SYRINGE SC SCH (10:28)
[2023-05-20] MEDS: PANTOPRAZOLE 40 MG/10 ML VIAL INJ IV SCH (10:28)
[2023-05-20] MEDS: AMIODARONE HCL 200 MG TAB GT SCH ×2 (10:29→21:19)
[2023-05-20] MEDS: METOPROLOL TARTRATE 25 MG TAB GT SCH ×2 (10:29→21:19)
[2023-05-20] MEDS ORDERED: MAGNESIUM SULFATE 1GM/100ML 100 ML IV ONE (11:30)
[2023-05-20] MEDS ORDERED: POTASSIUM CHL 20MEQ/100ML 100 ML IV ONE (11:30)
[2023-05-20 13:58] LABS: Base Excess -1.8 mmol/L (-2.0-2.0)
[2023-05-20 16:32] LABS: Base Excess -2.2 mmol/L (-2.0-2.0)
[2023-05-20] MEDS ORDERED: LACTULOSE 20Gm/30ML SOLN PO ONE (19:45)
[2023-05-20] MEDS: ATORVASTATIN 20 MG TAB PO SCH (21:20)
[2023-05-21] VITALS (102 sets, daily range): BP systolic 11–190; BP diastolic 31–103; PULSE 66–127; RESP 0–27; TEMP 97.9–102; O2SAT 91–100
[2023-05-21] MEDS: ACETAMINOPHEN 325 MG TAB PO PRN ×2 (01:26→21:44)
[2023-05-21] MEDS: hydrALAZINE HCL 20 MG/ML VL IV PRN (01:27)
[2023-05-21] MEDS ORDERED: IBUPROFEN 100MG/5ML ORAL SUSP 100 MG/5 ML UD ONE (01:58)
[2023-05-21] MEDS: IBUPROFEN 100MG/5ML ORAL SUSP 100 MG/5 ML UD NG PRN (02:19)
[2023-05-21 02:22] LABS: Base Excess 0.2 mmol/L (-2.0-2.0)
[2023-05-21 02:38] LABS: Basophils # (auto) 0.1 10 ^3/uL (0-0.2); Eosinophils # (auto) 0.3 10 ^3/uL (0-0.8); Hematocrit 33.6 % (41.0-53.0); Lymphocytes # (auto) 1.5 10 ^3/uL (0.4-5.4); Mean Corpuscular Hemoglobin 29.9 pg (28.0-32.0)
[2023-05-21 02:40] LABS: Basophils % (auto) 0.6 % (0.0-2.0); Eosinophils % (auto) 1.4 % (0.0-7.0); Hemoglobin 11.2 g/dL (13.5-17.5); Lymphocytes % (auto) 8.4 % (10.0-50.0); Mean Corpuscular Hgb Conc. 33.5 g/dL (32.0-36.0); Mean Corpuscular Volume 89.3 fL (80.0-100.0); Monocytes # (auto) 1.4 10 ^3/uL (0-1.3); Monocytes % (auto) 7.8 % (0.0-12.0); Neutrophils # (auto) 14.3 10 ^3/uL (1.6-8.6); Neutrophils % (auto) 81.8 % (37.0-80.0); Red Blood Cells 3.76 10^6/uL (4.5-5.90); White Blood Cell 17.5 10^3/uL (4.4-10.8)
[2023-05-21 02:53] LABS: Alanine Aminotransferase 23 U/L (7-40); Albumin 3.8 g/dL (3.2-4.8); Alkaline Phosphatase 183 U/L (46-116); Anion Gap 8 (5-15); Aspartate Aminotransferase 27 U/L (13-40); BUN/Creatinine Ratio 24.5 (10.0-20.0); Blood Urea Nitrogen 13 mg/dL (9-23); Calcium 8.7 mg/dL (8.7-10.4); Carbon Dioxide 25 mmol/L (20-30); Chloride 103 mmol/L (98-107); Glucose 113 mg/dL (74-106); Magnesium 1.7 mg/dL (1.6-2.6); Potassium 3.9 mmol/L (3.5-5.1); Sodium 136 mmol/L (136-145)
[2023-05-21 02:54] LABS: Bilirubin, Total 0.5 mg/dL (0.2-1.0); Total Protein 6.7 g/dL (5.7-8.2)
[2023-05-21] MEDS: ATRACURIUM BESYLATE 1,000 MG in D5W 5% 150 ML IV SCH (03:15)
[2023-05-21] MEDS: NOREPINEPHRINE 8 MG/250ML KIT 250 ML IV SCH (04:00)
[2023-05-21] MEDS: VANCOMYCIN 1GM/200ML 250 ML IV SCH ×3 (04:24→21:20)
[2023-05-21] MEDS: SODIUM CHLOR 0.9% PF (SALINE LOCK) 10ML VIAL/SYR IV SCH ×5 (05:33→21:30)
[2023-05-21] MEDS: ACCU-CHEK COMFORT CURVE STRIP VI SCH ×4 (05:33→23:42)
[2023-05-21] MEDS: CEFEPIME 2GM/50ML NS 50 ML IV SCH ×3 (05:33→21:30)
[2023-05-21] MEDS: chlordiazePOXIDE HCL 5 MG CAP PO SCH ×3 (05:33→21:30)
[2023-05-21] MEDS: FUROSEMIDE 40 MG/4 ML VIAL IV SCH ×2 (05:33→18:39)
[2023-05-21] MEDS: InsuLIN REG 1unit/0.01ml Soln (100units/ml) SC SCH ×4 (05:41→23:42)
[2023-05-21 07:19] LABS: Base Excess 2.4 mmol/L (-2.0-2.0)
[2023-05-21] MEDS: MIDAZOLAM DRIP 50 mg/50mL 50 ML IV SCH ×5 (07:46→23:15)
[2023-05-21] MEDS: PROPOFOL 100 ML IV SCH ×6 (08:27→23:15)
[2023-05-21] MEDS: METOPROLOL TARTRATE 25 MG TAB GT SCH ×2 (10:00→21:30)
[2023-05-21] MEDS: ENOXAPARIN SOD 40 MG/0.4 ML SYRINGE SC SCH (11:40)
[2023-05-21] MEDS: PANTOPRAZOLE 40 MG/10 ML VIAL INJ IV SCH (11:40)
[2023-05-21] MEDS: AMIODARONE HCL 200 MG TAB GT SCH ×2 (11:43→21:30)
[2023-05-21] MEDS: fentaNYL Drip 2500mCg/250mlNS 250 ML IV SCH ×2 (13:25→20:30)
[2023-05-21] MEDS ORDERED: ALBUTEROL MEDNEB 2.5 mg/3ml NEB NEB PRN (20:00)
[2023-05-21] MEDS ORDERED: IPRATROPIUM BROM 0.5 MG/2.5ML INH SOL NEB PRN (20:00)
[2023-05-21] MEDS: ATORVASTATIN 20 MG TAB PO SCH (21:30)
[2023-05-22] VITALS (111 sets, daily range): BP systolic 75–239; BP diastolic 30–111; PULSE 64–132; RESP 11–27; TEMP 97.3–101.3; O2SAT 89–100
[2023-05-22] MEDS: fentaNYL Drip 2500mCg/250mlNS 250 ML IV SCH ×3 (03:10→21:27)
[2023-05-22] MEDS: ATRACURIUM BESYLATE 1,000 MG in D5W 5% 150 ML IV SCH (03:15)
[2023-05-22] MEDS: hydrALAZINE HCL 20 MG/ML VL IV PRN ×2 (03:16→18:30)
[2023-05-22] MEDS ORDERED: IBUPROFEN 600 MG TAB PO ONE (03:32)
[2023-05-22] MEDS: IBUPROFEN 100MG/5ML ORAL SUSP 100 MG/5 ML UD NG PRN (03:42)
[2023-05-22 03:48] LABS: Basophils # (auto) 0.1 10 ^3/uL (0-0.2); Basophils % (auto) 0.3 % (0.0-2.0); Eosinophils # (auto) 0.3 10 ^3/uL (0-0.8); Eosinophils % (auto) 1.8 % (0.0-7.0); Hemoglobin 11.3 g/dL (13.5-17.5); Lymphocytes # (auto) 1.9 10 ^3/uL (0.4-5.4); Lymphocytes % (auto) 11.7 % (10.0-50.0); Mean Corpuscular Hemoglobin 29.5 pg (28.0-32.0); Mean Corpuscular Hgb Conc. 33.3 g/dL (32.0-36.0); Mean Corpuscular Volume 88.7 fL (80.0-100.0); Monocytes # (auto) 1.4 10 ^3/uL (0-1.3); Monocytes % (auto) 8.5 % (0.0-12.0); Neutrophils # (auto) 12.9 10 ^3/uL (1.6-8.6); Neutrophils % (auto) 77.7 % (37.0-80.0); Red Blood Cells 3.83 10^6/uL (4.5-5.90); Red Cell Distribution Width 12.8 % (11.8-14.3); White Blood Cell 16.6 10^3/uL (4.4-10.8)
[2023-05-22 04:09] LABS: Chloride 103 mmol/L (98-107); Sodium 137 mmol/L (136-145)
[2023-05-22 04:10] LABS: Anion Gap 7 (5-15); Carbon Dioxide 27 mmol/L (20-30)
[2023-05-22 04:11] LABS: Calcium 8.9 mg/dL (8.7-10.4)
[2023-05-22 04:15] LABS: Glucose 97 mg/dL (74-106)
[2023-05-22] MEDS: NOREPINEPHRINE 8 MG/250ML KIT 250 ML IV SCH (04:15)
[2023-05-22 04:16] LABS: Blood Urea Nitrogen 14 mg/dL (9-23)
[2023-05-22 04:25] LABS: Magnesium 1.7 mg/dL (1.6-2.6)
[2023-05-22] MEDS: VANCOMYCIN 1GM/200ML 250 ML IV SCH ×3 (05:03→21:28)
[2023-05-22] MEDS: ACETAMINOPHEN 325 MG TAB PO PRN ×2 (05:12→16:14)
[2023-05-22] MEDS: PROPOFOL 100 ML IV SCH ×5 (05:26→21:48)
[2023-05-22] MEDS: SODIUM CHLOR 0.9% PF (SALINE LOCK) 10ML VIAL/SYR IV SCH ×5 (05:30→21:32)
[2023-05-22] MEDS: chlordiazePOXIDE HCL 5 MG CAP PO SCH ×3 (05:30→21:31)
[2023-05-22] MEDS: CEFEPIME 2GM/50ML NS 50 ML IV SCH ×3 (05:30→21:32)
[2023-05-22] MEDS: ACCU-CHEK COMFORT CURVE STRIP VI SCH ×3 (05:31→17:55)
[2023-05-22] MEDS: InsuLIN REG 1unit/0.01ml Soln (100units/ml) SC SCH ×3 (05:31→17:55)
[2023-05-22] MEDS: FUROSEMIDE 40 MG/4 ML VIAL IV SCH ×2 (06:00→17:58)
[2023-05-22 07:12] LABS: Base Excess 0.7 mmol/L (-2.0-2.0)
[2023-05-22] MEDS ORDERED: LIDOCAINE 2%HCL (LOCAL ANESTH.) INJ 20ML MDV ONE (08:21)
[2023-05-22] MEDS ORDERED: EPINEPHrine HCL 1 MG/1 ML AMP ONE ×2 (08:21→08:53)
[2023-05-22] MEDS ORDERED: GLYCOPYRROLATE 0.2 MG/ML 1ML VIAL ONE ×2 (08:21→08:51)
[2023-05-22] MEDS ORDERED: LIDOCAINE 2% JELLY 11ml (GLYDO) ONE ×2 (08:21→08:35)
[2023-05-22] MEDS ORDERED: fentaNYL CITRATE 100 MCG/2 ML VL ONE (08:22)
[2023-05-22] MEDS ORDERED: MIDAZOLAM HCL 5 MG/ML-1ML VIAL ONE (08:22)
[2023-05-22] MEDS ORDERED: SODIUM CHLORIDE LOCK 0 ML ONE (08:35)
[2023-05-22] MEDS ORDERED: BENZOCAINE (DENTAL) 20 % SPRAY 60ML MT ONE (08:36)
[2023-05-22] MEDS: ROCURONIUM 10MG/ML 10ML VIAL IV PRN ×2 (08:43→19:02)
[2023-05-22] MEDS: METOPROLOL TARTRATE 25 MG TAB GT SCH ×2 (10:00→21:32)
[2023-05-22] MEDS ORDERED: ROCURONIUM 10MG/ML 10ML VIAL IV ONE (10:19)
[2023-05-22] MEDS: AMIODARONE HCL 200 MG TAB GT SCH ×2 (11:06→21:31)
[2023-05-22] MEDS: PANTOPRAZOLE 40 MG/10 ML VIAL INJ IV SCH (11:06)
[2023-05-22] MEDS: ENOXAPARIN SOD 40 MG/0.4 ML SYRINGE SC SCH (11:07)
[2023-05-22] MEDS: MIDAZOLAM DRIP 50 mg/50mL 50 ML IV SCH (11:48)
[2023-05-22] MEDS: ATORVASTATIN 20 MG TAB PO SCH (21:31)
[2023-05-23] VITALS (101 sets, daily range): BP systolic 83–206; BP diastolic 34–101; PULSE 78–130; RESP 8–23; TEMP 98.8–100.9; O2SAT 92–100
[2023-05-23] MEDS: ACCU-CHEK COMFORT CURVE STRIP VI SCH ×4 (00:12→17:26)
[2023-05-23] MEDS: PROPOFOL 100 ML IV SCH ×6 (00:13→21:21)
[2023-05-23] MEDS: ROCURONIUM 10MG/ML 10ML VIAL IV PRN (01:57)
[2023-05-23] MEDS: MIDAZOLAM DRIP 50 mg/50mL 50 ML IV SCH ×3 (03:14→21:21)
[2023-05-23] MEDS: ATRACURIUM BESYLATE 1,000 MG in D5W 5% 150 ML IV SCH (03:15)
[2023-05-23] MEDS: NOREPINEPHRINE 8 MG/250ML KIT 250 ML IV SCH (04:15)
[2023-05-23 04:27] LABS: Chloride 102 mmol/L (98-107); Potassium 3.8 mmol/L (3.5-5.1); Sodium 136 mmol/L (136-145)
[2023-05-23 04:28] LABS: Anion Gap 8 (5-15); Basophils # (auto) 0.1 10 ^3/uL (0-0.2); Basophils % (auto) 0.5 % (0.0-2.0); Carbon Dioxide 26 mmol/L (20-30); Eosinophils # (auto) 0.3 10 ^3/uL (0-0.8); Eosinophils % (auto) 1.8 % (0.0-7.0); Hematocrit 34.4 % (41.0-53.0); Hemoglobin 11.4 g/dL (13.5-17.5); Lymphocytes % (auto) 14.5 % (10.0-50.0); Mean Corpuscular Hemoglobin 29.6 pg (28.0-32.0); Mean Corpuscular Hgb Conc. 33.2 g/dL (32.0-36.0); Monocytes # (auto) 1.2 10 ^3/uL (0-1.3); Monocytes % (auto) 8.6 % (0.0-12.0); Neutrophils # (auto) 10.3 10 ^3/uL (1.6-8.6); Neutrophils % (auto) 74.6 % (37.0-80.0); Nucleated Red Blood Cells % 0.1 %; Red Blood Cells 3.87 10^6/uL (4.5-5.90); Red Cell Distribution Width 12.8 % (11.8-14.3); White Blood Cell 13.9 10^3/uL (4.4-10.8)
[2023-05-23 04:29] LABS: Calcium 8.9 mg/dL (8.7-10.4)
[2023-05-23 04:33] LABS: BUN/Creatinine Ratio 36.2 (10.0-20.0); Blood Urea Nitrogen 17 mg/dL (9-23); Glucose 98 mg/dL (74-106)
[2023-05-23 04:34] LABS: Magnesium 1.7 mg/dL (1.6-2.6)
[2023-05-23] MEDS: fentaNYL Drip 2500mCg/250mlNS 250 ML IV SCH ×3 (05:10→21:23)
[2023-05-23] MEDS: VANCOMYCIN 1GM/200ML 250 ML IV SCH ×3 (05:20→21:57)
[2023-05-23] MEDS: SODIUM CHLOR 0.9% PF (SALINE LOCK) 10ML VIAL/SYR IV SCH ×5 (05:30→21:59)
[2023-05-23] MEDS: CEFEPIME 2GM/50ML NS 50 ML IV SCH ×3 (05:30→21:59)
[2023-05-23] MEDS: FUROSEMIDE 40 MG/4 ML VIAL IV SCH ×2 (05:30→17:26)
[2023-05-23] MEDS: chlordiazePOXIDE HCL 5 MG CAP PO SCH ×3 (05:30→21:58)
[2023-05-23] MEDS: InsuLIN REG 1unit/0.01ml Soln (100units/ml) SC SCH ×4 (05:31→17:30)
[2023-05-23 08:00] LABS: Base Excess 1.3 mmol/L (-2.0-2.0)
[2023-05-23] MEDS: METOPROLOL TARTRATE 25 MG TAB GT SCH ×2 (09:48→21:58)
[2023-05-23] MEDS: PANTOPRAZOLE 40 MG/10 ML VIAL INJ IV SCH (09:48)
[2023-05-23] MEDS: AMIODARONE HCL 200 MG TAB GT SCH ×2 (09:48→21:58)
[2023-05-23] MEDS: ENOXAPARIN SOD 40 MG/0.4 ML SYRINGE SC SCH (09:48)
[2023-05-23] MEDS: ACETAMINOPHEN 325 MG TAB PO PRN ×2 (18:00→22:49)
[2023-05-23] MEDS: ATORVASTATIN 20 MG TAB PO SCH (21:58)
[2023-05-23] MEDS: hydrALAZINE HCL 20 MG/ML VL IV PRN (22:49)
[2023-05-24] VITALS (113 sets, daily range): BP systolic 91–229; BP diastolic 36–118; PULSE 76–113; RESP 6–37; TEMP 98.2–100.9; O2SAT 91–100
[2023-05-24] MEDS: PROPOFOL 100 ML IV SCH ×9 (00:03→22:55)
[2023-05-24] MEDS: ACCU-CHEK COMFORT CURVE STRIP VI SCH ×5 (00:03→23:55)
[2023-05-24] MEDS ORDERED: PROPOFOL 100 ML IV ONE (02:21)
[2023-05-24] MEDS: ATRACURIUM BESYLATE 1,000 MG in D5W 5% 150 ML IV SCH (03:15)
[2023-05-24] MEDS: NOREPINEPHRINE 8 MG/250ML KIT 250 ML IV SCH (04:07)
[2023-05-24] MEDS: fentaNYL Drip 2500mCg/250mlNS 250 ML IV SCH ×3 (04:56→22:20)
[2023-05-24] MEDS: VANCOMYCIN 1GM/200ML 250 ML IV SCH ×3 (05:01→21:18)
[2023-05-24] MEDS: FUROSEMIDE 40 MG/4 ML VIAL IV SCH ×2 (05:45→17:47)
[2023-05-24] MEDS: chlordiazePOXIDE HCL 5 MG CAP PO SCH ×3 (05:45→22:25)
[2023-05-24] MEDS: CEFEPIME 2GM/50ML NS 50 ML IV SCH (05:46)
[2023-05-24] MEDS: SODIUM CHLOR 0.9% PF (SALINE LOCK) 10ML VIAL/SYR IV SCH ×5 (05:46→22:27)
[2023-05-24] MEDS: InsuLIN REG 1unit/0.01ml Soln (100units/ml) SC SCH ×5 (05:52→23:55)
[2023-05-24 08:37] LABS: Chloride 100 mmol/L (98-107); Sodium 136 mmol/L (136-145)
[2023-05-24 08:38] LABS: Anion Gap 11 (5-15); Calcium 9.6 mg/dL (8.5-10.1); Carbon Dioxide 25 mmol/L (20-30)
[2023-05-24 08:39] LABS: Mean Corpuscular Volume 89.2 fL (80.0-100.0)
[2023-05-24 08:43] LABS: BUN/Creatinine Ratio 28.3 (10.0-20.0); Blood Urea Nitrogen 17 mg/dL (9-23); Glucose 97 mg/dL (74-106)
[2023-05-24 08:47] LABS: Hematocrit 38.3 % (41.0-53.0); Hemoglobin 12.7 g/dL (13.5-17.5); Mean Corpuscular Hemoglobin 29.5 pg (28.0-32.0); Red Cell Distribution Width 12.9 % (11.8-14.3); White Blood Cell 14.1 10^3/uL (4.4-10.8)
[2023-05-24 08:50] LABS: Basophils % (manual) 0 (0.0-2.0); Blast Cells 0; Promyelocytes % 0; Reactive Lymphocytes 0
[2023-05-24] MEDS: PANTOPRAZOLE 40 MG/10 ML VIAL INJ IV SCH (10:01)
[2023-05-24] MEDS: ENOXAPARIN SOD 40 MG/0.4 ML SYRINGE SC SCH (10:01)
[2023-05-24] MEDS: METOPROLOL TARTRATE 25 MG TAB GT SCH ×2 (10:02→22:26)
[2023-05-24] MEDS: AMIODARONE HCL 200 MG TAB GT SCH ×2 (10:02→22:26)
[2023-05-24 10:08] LABS: Magnesium 1.9 mg/dL (1.6-2.6)
[2023-05-24 13:07] LABS: Band Neutrophils % (manual) 3; Eosinophils % (manual) 4 (0-7); Lymphocytes % (manual) 17 (10.0-50.0); Metamyelocytes % 2; Monocytes % (manual) 6 (0-12); Myelocytes % 2; Platelet Estimate Increased
[2023-05-24 13:08] LABS: Giant Platelets Few
[2023-05-24] MEDS ORDERED: LIDOCAINE VISCOUS 2% 15ML UD ONE (14:01)
[2023-05-24] MEDS ORDERED: fentaNYL CITRATE 100 MCG/2 ML VL ONE (14:26)
[2023-05-24] MEDS ORDERED: fentaNYL CITRATE 100 MCG/2 ML VL IV ONE (14:30)
[2023-05-24] MEDS ORDERED: LIDOCAINE VISCOUS 2% 15ML UD MT PRN (14:30)
[2023-05-24] MEDS: ACETAMINOPHEN 325 MG TAB PO PRN (17:14)
[2023-05-24] MEDS: MIDAZOLAM DRIP 50 mg/50mL 50 ML IV SCH (18:08)
[2023-05-24] MEDS: ATORVASTATIN 20 MG TAB PO SCH (22:26)
[2023-05-25] VITALS (111 sets, daily range): BP systolic 72–214; BP diastolic 28–105; PULSE 77–136; RESP 10–36; TEMP 98.2–100.6; O2SAT 91–100
[2023-05-25] MEDS: ACETAMINOPHEN 325 MG TAB PO PRN ×2 (01:49→14:28)
[2023-05-25] MEDS: PROPOFOL 100 ML IV SCH ×7 (02:03→23:25)
[2023-05-25] MEDS: ATRACURIUM BESYLATE 1,000 MG in D5W 5% 150 ML IV SCH (03:15)
[2023-05-25] MEDS: NOREPINEPHRINE 8 MG/250ML KIT 250 ML IV SCH (04:15)
[2023-05-25 04:35] LABS: Mean Corpuscular Volume 87.8 fL (80.0-100.0)
[2023-05-25 04:36] LABS: Hematocrit 31.7 % (41.0-53.0); Hemoglobin 10.8 g/dL (13.5-17.5); Mean Corpuscular Hemoglobin 29.9 pg (28.0-32.0); Mean Corpuscular Hgb Conc. 34.1 g/dL (32.0-36.0); Red Blood Cells 3.61 10^6/uL (4.5-5.90); Red Cell Distribution Width 12.8 % (11.8-14.3); White Blood Cell 8.3 10^3/uL (4.4-10.8)
[2023-05-25 04:40] LABS: Basophils % (manual) 0 (0.0-2.0); Blast Cells 0; Metamyelocytes % 0; Myelocytes % 0; Promyelocytes % 0; Reactive Lymphocytes 0
[2023-05-25 04:46] LABS: Chloride 102 mmol/L (98-107); Potassium 3.8 mmol/L (3.5-5.1); Sodium 137 mmol/L (136-145)
[2023-05-25 04:47] LABS: Anion Gap 8 (5-15); Carbon Dioxide 27 mmol/L (20-30)
[2023-05-25 04:48] LABS: Calcium 8.8 mg/dL (8.7-10.4)
[2023-05-25 04:53] LABS: BUN/Creatinine Ratio 35.3 (10.0-20.0); Blood Urea Nitrogen 18 mg/dL (9-23); Glucose 99 mg/dL (74-106); Magnesium 1.8 mg/dL (1.6-2.6)
[2023-05-25 05:20] LABS: Band Neutrophils % (manual) 3; Eosinophils % (manual) 5 (0-7); Lymphocytes % (manual) 32 (10.0-50.0); Monocytes % (manual) 12 (0-12); Platelet Estimate Increased
[2023-05-25] MEDS: MIDAZOLAM DRIP 50 mg/50mL 50 ML IV SCH (05:24)
[2023-05-25] MEDS: VANCOMYCIN 1GM/200ML 250 ML IV SCH ×2 (05:41→22:37)
[2023-05-25] MEDS: FUROSEMIDE 40 MG/4 ML VIAL IV SCH ×2 (05:48→17:31)
[2023-05-25] MEDS: chlordiazePOXIDE HCL 5 MG CAP PO SCH ×3 (05:48→22:38)
[2023-05-25] MEDS: SODIUM CHLOR 0.9% PF (SALINE LOCK) 10ML VIAL/SYR IV SCH ×5 (05:49→22:39)
[2023-05-25] MEDS: InsuLIN REG 1unit/0.01ml Soln (100units/ml) SC SCH ×4 (05:51→23:52)
[2023-05-25] MEDS: ACCU-CHEK COMFORT CURVE STRIP VI SCH ×4 (05:51→23:49)
[2023-05-25] MEDS: fentaNYL Drip 2500mCg/250mlNS 250 ML IV SCH ×2 (07:25→17:11)
[2023-05-25 07:42] LABS: Base Excess 4.3 mmol/L (-2.0-2.0)
[2023-05-25] MEDS: METOPROLOL TARTRATE 25 MG TAB GT SCH ×2 (10:00→22:00)
[2023-05-25] MEDS: AMIODARONE HCL 200 MG TAB GT SCH ×2 (10:14→22:37)
[2023-05-25] MEDS: ENOXAPARIN SOD 40 MG/0.4 ML SYRINGE SC SCH (10:14)
[2023-05-25] MEDS: PANTOPRAZOLE 40 MG/10 ML VIAL INJ IV SCH (10:14)
[2023-05-25] MEDS: LACTULOSE 20Gm/30ML SOLN PO PRN (10:15)
[2023-05-25] MEDS ORDERED: MAGNESIUM SULFATE 1GM/100ML 100 ML IV ONE (15:45)
[2023-05-25] MEDS: QUEtiapine FUMARATE 25 MG TAB PO SCH (22:37)
[2023-05-25] MEDS: ATORVASTATIN 20 MG TAB PO SCH (22:37)
[2023-05-26] VITALS (101 sets, daily range): BP systolic 97–207; BP diastolic 11–88; PULSE 72–133; RESP 11–28; TEMP 99.5–101.1; O2SAT 91–100
[2023-05-26] MEDS: fentaNYL Drip 2500mCg/250mlNS 250 ML IV SCH (02:05)
[2023-05-26] MEDS: ATRACURIUM BESYLATE 1,000 MG in D5W 5% 150 ML IV SCH (03:15)
[2023-05-26] MEDS: NOREPINEPHRINE 8 MG/250ML KIT 250 ML IV SCH (04:15)
[2023-05-26 04:17] LABS: Hemoglobin 10.3 g/dL (13.5-17.5); Red Cell Distribution Width 12.6 % (11.8-14.3)
[2023-05-26 04:20] LABS: Hematocrit 30.1 % (41.0-53.0); Mean Corpuscular Hemoglobin 29.9 pg (28.0-32.0); Mean Corpuscular Volume 87.8 fL (80.0-100.0); Red Blood Cells 3.43 10^6/uL (4.5-5.90); White Blood Cell 9.2 10^3/uL (4.4-10.8)
[2023-05-26 04:36] LABS: Anion Gap 7 (5-15); Carbon Dioxide 29 mmol/L (20-30); Chloride 101 mmol/L (98-107); Potassium 3.9 mmol/L (3.5-5.1); Sodium 137 mmol/L (136-145)
[2023-05-26 04:37] LABS: Calcium 8.9 mg/dL (8.7-10.4)
[2023-05-26 04:42] LABS: BUN/Creatinine Ratio 30.4 (10.0-20.0); Blood Urea Nitrogen 21 mg/dL (9-23); Glucose 91 mg/dL (74-106)
[2023-05-26 04:52] LABS: Basophils % (manual) 0 (0.0-2.0); Blast Cells 0; Metamyelocytes % 0; Myelocytes % 0; Promyelocytes % 0; Reactive Lymphocytes 0
[2023-05-26 05:38] LABS: Band Neutrophils % (manual) 1; Eosinophils % (manual) 3 (0-7); Lymphocytes % (manual) 16 (10.0-50.0); Monocytes % (manual) 5 (0-12)
[2023-05-26 05:39] LABS: Platelet Estimate Increased; RBC Morphology Normal
[2023-05-26] MEDS: InsuLIN REG 1unit/0.01ml Soln (100units/ml) SC SCH ×3 (06:00→18:00)
[2023-05-26] MEDS: ACCU-CHEK COMFORT CURVE STRIP VI SCH ×3 (06:37→18:09)
[2023-05-26] MEDS: FUROSEMIDE 40 MG/4 ML VIAL IV SCH ×2 (06:39→16:44)
[2023-05-26] MEDS: chlordiazePOXIDE HCL 5 MG CAP PO SCH ×4 (06:39→22:00)
[2023-05-26] MEDS: SODIUM CHLOR 0.9% PF (SALINE LOCK) 10ML VIAL/SYR IV SCH ×5 (06:40→21:33)
[2023-05-26 07:26] LABS: Base Excess 3.4 mmol/L (-2.0-2.0)
[2023-05-26] MEDS: VANCOMYCIN 1GM/200ML 250 ML IV SCH ×2 (08:28→17:31)
[2023-05-26] MEDS: METOPROLOL TARTRATE 25 MG TAB GT SCH ×3 (09:25→22:00)
[2023-05-26] MEDS: QUEtiapine FUMARATE 25 MG TAB PO SCH ×3 (09:25→22:00)
[2023-05-26] MEDS: AMIODARONE HCL 200 MG TAB GT SCH ×3 (09:25→22:00)
[2023-05-26] MEDS: LISINOPRIL 10 MG TAB PO SCH (09:26)
[2023-05-26] MEDS: PANTOPRAZOLE 40 MG/10 ML VIAL INJ IV SCH (09:26)
[2023-05-26] MEDS: ACETAMINOPHEN 325 MG TAB PO PRN (14:02)
[2023-05-26 14:57] LABS: Base Excess 1.5 mmol/L (-2.0-2.0)
[2023-05-26] MEDS: hydrALAZINE HCL 20 MG/ML VL IV PRN (15:44)
[2023-05-26] MEDS ORDERED: MORPHINE SULFATE INJ 2 MG/ml SYRG IV ONE (15:45)
[2023-05-26] MEDS: niCARdipine 50 MG in SODIUM CHL 0.9% 230 ML IV SCH ×3 (16:06→21:37)
[2023-05-26] MEDS ORDERED: METOPROLOL TARTRATE 1MG/1ML-5ML VIAL IV PRN (17:15)
[2023-05-26] MEDS: MORPHINE SULFATE INJ 2 MG/ml SYRG IV PRN ×2 (17:34→21:36)
[2023-05-26] MEDS: ACETAMINOPHEN 650 MG RECT SUPP PR PRN (18:48)
[2023-05-26] MEDS: ATORVASTATIN 20 MG TAB PO SCH ×2 (21:32→22:00)
[2023-05-27] VITALS (99 sets, daily range): BP systolic 114–201; BP diastolic 54–92; PULSE 86–129; RESP 11–32; TEMP 100.2–101.1; O2SAT 88–98
[2023-05-27] MEDS: ACCU-CHEK COMFORT CURVE STRIP VI SCH ×4 (00:09→17:54)
[2023-05-27] MEDS: MIDAZOLAM DRIP 50 mg/50mL 50 ML IV SCH (00:15)
[2023-05-27] MEDS: niCARdipine 50 MG in SODIUM CHL 0.9% 230 ML IV SCH ×5 (01:09→15:53)
[2023-05-27] MEDS: MORPHINE SULFATE INJ 2 MG/ml SYRG IV PRN ×4 (01:27→22:22)
[2023-05-27] MEDS: ACETAMINOPHEN 650 MG RECT SUPP PR PRN (02:09)
[2023-05-27] MEDS: PROPOFOL 100 ML IV SCH (02:21)
[2023-05-27] MEDS: fentaNYL Drip 2500mCg/250mlNS 250 ML IV SCH (02:45)
[2023-05-27] MEDS: ATRACURIUM BESYLATE 1,000 MG in D5W 5% 150 ML IV SCH (03:15)
[2023-05-27] MEDS: ATORVASTATIN 20 MG TAB PO SCH ×2 (03:21→22:24)
[2023-05-27 03:48] LABS: Chloride 105 mmol/L (98-107); Potassium 3.6 mmol/L (3.5-5.1); Sodium 142 mmol/L (136-145)
[2023-05-27 03:49] LABS: Anion Gap 12 (5-15); Calcium 9.6 mg/dL (8.7-10.4); Carbon Dioxide 25 mmol/L (20-30)
[2023-05-27 03:54] LABS: BUN/Creatinine Ratio 23.4 (10.0-20.0); Blood Urea Nitrogen 15 mg/dL (9-23); Glucose 131 mg/dL (74-106)
[2023-05-27] MEDS: NOREPINEPHRINE 8 MG/250ML KIT 250 ML IV SCH (04:15)
[2023-05-27] MEDS: VANCOMYCIN 1GM/200ML 250 ML IV SCH ×2 (04:17→14:31)
[2023-05-27] MEDS: FUROSEMIDE 40 MG/4 ML VIAL IV SCH ×2 (05:38→17:54)
[2023-05-27] MEDS: chlordiazePOXIDE HCL 5 MG CAP PO SCH ×3 (05:38→22:23)
[2023-05-27] MEDS: InsuLIN REG 1unit/0.01ml Soln (100units/ml) SC SCH ×4 (05:51→17:59)
[2023-05-27] MEDS: SODIUM CHLOR 0.9% PF (SALINE LOCK) 10ML VIAL/SYR IV SCH ×5 (06:00→22:24)
[2023-05-27] MEDS: PANTOPRAZOLE 40 MG/10 ML VIAL INJ IV SCH (10:20)
[2023-05-27] MEDS: LISINOPRIL 10 MG TAB PO SCH (10:21)
[2023-05-27] MEDS: IBUPROFEN 100MG/5ML ORAL SUSP 100 MG/5 ML UD NG PRN (10:21)
[2023-05-27] MEDS: AMIODARONE HCL 200 MG TAB GT SCH ×2 (10:21→22:23)
[2023-05-27] MEDS: QUEtiapine FUMARATE 25 MG TAB PO SCH ×2 (10:21→22:24)
[2023-05-27] MEDS: METOPROLOL TARTRATE 25 MG TAB GT SCH ×2 (10:24→22:23)
[2023-05-27] MEDS: hydrALAZINE HCL 20 MG/ML VL IV PRN (16:30)
[2023-05-27] MEDS ORDERED: IOHEXOL 350 MG/ML 100ML IJ ONE (20:29)
[2023-05-27] MEDS: ACETAMINOPHEN 325 MG TAB PO PRN (22:23)
[2023-05-27] MEDS: CEFEPIME 2GM/50ML NS 50 ML IV SCH (22:25)
[2023-05-28] VITALS (82 sets, daily range): BP systolic 126–201; BP diastolic 48–87; PULSE 60–108; RESP 10–26; TEMP 99–100.4; O2SAT 92–100
[2023-05-28] MEDS: MIDAZOLAM DRIP 50 mg/50mL 50 ML IV SCH (00:15)
[2023-05-28] MEDS: ACCU-CHEK COMFORT CURVE STRIP VI SCH ×5 (00:15→23:30)
[2023-05-28] MEDS: hydrALAZINE HCL 20 MG/ML VL IV PRN (01:00)
[2023-05-28] MEDS: PROPOFOL 100 ML IV SCH (02:21)
[2023-05-28] MEDS: fentaNYL Drip 2500mCg/250mlNS 250 ML IV SCH (02:45)
[2023-05-28] MEDS: ATRACURIUM BESYLATE 1,000 MG in D5W 5% 150 ML IV SCH (03:15)
[2023-05-28] MEDS: MORPHINE SULFATE INJ 2 MG/ml SYRG IV PRN ×2 (03:34→09:13)
[2023-05-28] MEDS: NOREPINEPHRINE 8 MG/250ML KIT 250 ML IV SCH (04:15)
[2023-05-28 04:17] LABS: Basophils # (auto) 0.1 10 ^3/uL (0-0.2); Eosinophils # (auto) 0.1 10 ^3/uL (0-0.8); Hemoglobin 12.3 g/dL (13.5-17.5); Neutrophils # (auto) 13.6 10 ^3/uL (1.6-8.6)
[2023-05-28 04:19] LABS: Basophils % (auto) 0.8 % (0.0-2.0); Eosinophils % (auto) 0.5 % (0.0-7.0); Hematocrit 37.7 % (41.0-53.0); Lymphocytes # (auto) 2.1 10 ^3/uL (0.4-5.4); Mean Corpuscular Hemoglobin 28.8 pg (28.0-32.0); Mean Corpuscular Hgb Conc. 32.6 g/dL (32.0-36.0); Mean Corpuscular Volume 88.4 fL (80.0-100.0); Monocytes # (auto) 1.4 10 ^3/uL (0-1.3); Monocytes % (auto) 8.3 % (0.0-12.0); Neutrophils % (auto) 78.4 % (37.0-80.0); Nucleated Red Blood Cells % 0.1 %; Red Blood Cells 4.27 10^6/uL (4.5-5.90); Red Cell Distribution Width 12.9 % (11.8-14.3); White Blood Cell 17.3 10^3/uL (4.4-10.8)
[2023-05-28 04:39] LABS: Alanine Aminotransferase 56 U/L (7-40); Albumin 4.3 g/dL (3.2-4.8); Alkaline Phosphatase 182 U/L (46-116); Anion Gap 12 (5-15); Aspartate Aminotransferase 54 U/L (13-40); BUN/Creatinine Ratio 27.7 (10.0-20.0); Bilirubin, Total 0.8 mg/dL (0.2-1.0); Blood Urea Nitrogen 18 mg/dL (9-23); Calcium 9.7 mg/dL (8.7-10.4); Carbon Dioxide 27 mmol/L (20-30); Chloride 106 mmol/L (98-107); Glucose 125 mg/dL (74-106); Potassium 2.8 mmol/L (3.5-5.1); Sodium 145 mmol/L (136-145); Total Protein 7.7 g/dL (5.7-8.2)
[2023-05-28] MEDS: cloNIDine HCL 0.1 MG TAB PO PRN ×2 (05:11→15:36)
[2023-05-28] MEDS: FUROSEMIDE 40 MG/4 ML VIAL IV SCH ×2 (05:33→18:21)
[2023-05-28] MEDS: chlordiazePOXIDE HCL 5 MG CAP PO SCH ×2 (05:33→14:00)
[2023-05-28] MEDS: SODIUM CHLOR 0.9% PF (SALINE LOCK) 10ML VIAL/SYR IV SCH ×5 (05:34→21:59)
[2023-05-28] MEDS: CEFEPIME 2GM/50ML NS 50 ML IV SCH ×3 (05:35→22:00)
[2023-05-28] MEDS: InsuLIN REG 1unit/0.01ml Soln (100units/ml) SC SCH ×5 (05:39→23:34)
[2023-05-28 06:54] LABS: Large Platelets FEW; Platelet Estimate Increased
[2023-05-28] MEDS: niCARdipine 50 MG in SODIUM CHL 0.9% 230 ML IV SCH ×2 (07:00→16:50)
[2023-05-28] MEDS: PANTOPRAZOLE 40 MG/10 ML VIAL INJ IV SCH (09:13)
[2023-05-28] MEDS: AMIODARONE HCL 200 MG TAB GT SCH ×2 (09:13→21:58)
[2023-05-28] MEDS: LISINOPRIL 10 MG TAB PO SCH (09:14)
[2023-05-28] MEDS: QUEtiapine FUMARATE 25 MG TAB PO SCH ×2 (09:14→21:58)
[2023-05-28] MEDS: METOPROLOL TARTRATE 25 MG TAB GT SCH ×2 (09:20→21:58)
[2023-05-28] MEDS: POTASSIUM CHL 20MEQ/100ML 100 ML IV SCH ×3 (14:39→18:22)
[2023-05-28] MEDS: IBUPROFEN 100MG/5ML ORAL SUSP 100 MG/5 ML UD NG PRN (15:37)
[2023-05-28] MEDS: LORazepam 2MG/ML-1ML VIAL IV PRN (15:37)
[2023-05-28] MEDS: ATORVASTATIN 20 MG TAB PO SCH (21:58)
[2023-05-29] VITALS (29 sets, daily range): BP systolic 121–167; BP diastolic 41–76; PULSE 50–88; RESP 9–20; TEMP 98–99.6; O2SAT 92–100
[2023-05-29] MEDS: ATRACURIUM BESYLATE 1,000 MG in D5W 5% 150 ML IV SCH (03:15)
[2023-05-29 04:56] LABS: Basophils # (auto) 0.1 10 ^3/uL (0-0.2); Basophils % (auto) 1.1 % (0.0-2.0); Hematocrit 33.1 % (41.0-53.0); Red Blood Cells 3.69 10^6/uL (4.5-5.90)
[2023-05-29 04:57] LABS: Eosinophils # (auto) 0.1 10 ^3/uL (0-0.8); Eosinophils % (auto) 1.2 % (0.0-7.0); Hemoglobin 10.8 g/dL (13.5-17.5); Lymphocytes % (auto) 17.3 % (10.0-50.0); Mean Corpuscular Hemoglobin 29.2 pg (28.0-32.0); Mean Corpuscular Hgb Conc. 32.6 g/dL (32.0-36.0); Mean Corpuscular Volume 89.6 fL (80.0-100.0); Monocytes # (auto) 1.2 10 ^3/uL (0-1.3); Monocytes % (auto) 9.9 % (0.0-12.0); Neutrophils # (auto) 8.2 10 ^3/uL (1.6-8.6); Neutrophils % (auto) 70.5 % (37.0-80.0); White Blood Cell 11.7 10^3/uL (4.4-10.8)
[2023-05-29 05:07] LABS: Alanine Aminotransferase 61 U/L (7-40); Albumin 4.1 g/dL (3.2-4.8); Alkaline Phosphatase 159 U/L (46-116); Anion Gap 9 (5-15); Aspartate Aminotransferase 45 U/L (13-40); BUN/Creatinine Ratio 37.8 (10.0-20.0); Calcium 9.7 mg/dL (8.5-10.1); Carbon Dioxide 28 mmol/L (20-30); Chloride 109 mmol/L (98-107); Glucose 110 mg/dL (74-106); Potassium 3.1 mmol/L (3.5-5.1); Sodium 146 mmol/L (136-145)
[2023-05-29 05:08] LABS: Bilirubin, Total 0.5 mg/dL (0.2-1.0); Total Protein 7.1 g/dL (5.7-8.2)
[2023-05-29 05:18] LABS: Blood Urea Nitrogen 28 mg/dL (9-23)
[2023-05-29] MEDS: FUROSEMIDE 40 MG/4 ML VIAL IV SCH ×2 (05:33→18:09)
[2023-05-29] MEDS: SODIUM CHLOR 0.9% PF (SALINE LOCK) 10ML VIAL/SYR IV SCH ×5 (05:34→22:00)
[2023-05-29] MEDS: CEFEPIME 2GM/50ML NS 50 ML IV SCH ×3 (05:34→23:11)
[2023-05-29] MEDS: ACCU-CHEK COMFORT CURVE STRIP VI SCH ×4 (05:34→23:13)
[2023-05-29] MEDS: InsuLIN REG 1unit/0.01ml Soln (100units/ml) SC SCH ×4 (05:38→23:13)
[2023-05-29] MEDS: PANTOPRAZOLE 40 MG/10 ML VIAL INJ IV SCH (10:04)
[2023-05-29] MEDS: AMIODARONE HCL 200 MG TAB GT SCH ×2 (10:05→23:11)
[2023-05-29] MEDS: METOPROLOL TARTRATE 25 MG TAB GT SCH ×2 (10:05→23:12)
[2023-05-29] MEDS: LISINOPRIL 10 MG TAB PO SCH (10:06)
[2023-05-29] MEDS: NIFEdipine ER 30 MG TAB PO SCH (10:07)
[2023-05-29] MEDS: QUEtiapine FUMARATE 25 MG TAB PO SCH ×2 (10:07→23:11)
[2023-05-29] MEDS: POTASSIUM CHL 20MEQ/100ML 100 ML IV SCH ×2 (10:08→14:54)
[2023-05-29] MEDS: LORazepam 2MG/ML-1ML VIAL IV PRN (14:55)
[2023-05-29] MEDS ORDERED: LORazepam 2MG/ML-1ML VIAL IV PRN (17:45)
[2023-05-29] MEDS: ATORVASTATIN 20 MG TAB PO SCH (23:11)
[2023-05-30] VITALS (7 sets, daily range): BP systolic 140–153; BP diastolic 54–66; PULSE 69–76; RESP 18; TEMP 98.2–98.4; O2SAT 94–97
[2023-05-30] MEDS: InsuLIN REG 1unit/0.01ml Soln (100units/ml) SC SCH ×3 (06:00→17:29)
[2023-05-30] MEDS: CEFEPIME 2GM/50ML NS 50 ML IV SCH ×3 (06:44→22:34)
[2023-05-30] MEDS: SODIUM CHLOR 0.9% PF (SALINE LOCK) 10ML VIAL/SYR IV SCH ×5 (06:44→23:05)
[2023-05-30] MEDS: ACCU-CHEK COMFORT CURVE STRIP VI SCH ×3 (06:44→17:29)
[2023-05-30] MEDS: FUROSEMIDE 40 MG/4 ML VIAL IV SCH ×2 (06:45→17:38)
[2023-05-30 07:54] LABS: Basophils # (auto) 0.1 10 ^3/uL (0-0.2); Eosinophils # (auto) 0.2 10 ^3/uL (0-0.8); Eosinophils % (auto) 1.9 % (0.0-7.0); Hemoglobin 10.9 g/dL (13.5-17.5); Lymphocytes # (auto) 1.8 10 ^3/uL (0.4-5.4); Lymphocytes % (auto) 16.1 % (10.0-50.0); Mean Corpuscular Hemoglobin 30.2 pg (28.0-32.0); Mean Corpuscular Hgb Conc. 34.1 g/dL (32.0-36.0); Mean Corpuscular Volume 88.6 fL (80.0-100.0); Monocytes % (auto) 8.4 % (0.0-12.0); Neutrophils # (auto) 8.3 10 ^3/uL (1.6-8.6); Neutrophils % (auto) 72.6 % (37.0-80.0); Red Blood Cells 3.61 10^6/uL (4.5-5.90); Red Cell Distribution Width 12.7 % (11.8-14.3); White Blood Cell 11.5 10^3/uL (4.4-10.8)
[2023-05-30 07:56] LABS: Alanine Aminotransferase 58 U/L (7-40); Alkaline Phosphatase 149 U/L (46-116); Anion Gap 10 (5-15); Aspartate Aminotransferase 42 U/L (13-40); BUN/Creatinine Ratio 33.8 (10.0-20.0); Blood Urea Nitrogen 26 mg/dL (9-23); Calcium 9.5 mg/dL (8.5-10.1); Carbon Dioxide 28 mmol/L (20-30); Chloride 109 mmol/L (98-107); Glucose 156 mg/dL (74-106); Potassium 2.9 mmol/L (3.5-5.1); Sodium 147 mmol/L (136-145)
[2023-05-30 07:57] LABS: Albumin 4.1 g/dL (3.2-4.8)
[2023-05-30 07:58] LABS: Bilirubin, Total 0.5 mg/dL (0.2-1.0)
[2023-05-30] MEDS: PANTOPRAZOLE 40 MG/10 ML VIAL INJ IV SCH (09:54)
[2023-05-30] MEDS: NIFEdipine ER 30 MG TAB PO SCH (09:55)
[2023-05-30] MEDS: LISINOPRIL 10 MG TAB PO SCH (09:55)
[2023-05-30] MEDS: QUEtiapine FUMARATE 25 MG TAB PO SCH ×2 (09:56→22:58)
[2023-05-30] MEDS: METOPROLOL TARTRATE 50 MG TAB PO SCH ×2 (10:14→22:39)
[2023-05-30] MEDS: AMIODARONE HCL 200 MG TAB PO SCH ×2 (10:14→22:40)
[2023-05-30] MEDS ORDERED: POTASSIUM CHL 20 Meq TABLET PO ONE (13:00)
[2023-05-30] MEDS: ACETAMINOPHEN 325 MG TAB PO PRN ×2 (13:07→22:38)
[2023-05-30] MEDS ORDERED: POTASSIUM EFFERVESENT TAB 25 MEQ PO ONE (15:30)
[2023-05-30] MEDS ORDERED: POTASSIUM EFFERVESENT TAB 25 MEQ ONE (16:28)
[2023-05-30] MEDS: ATORVASTATIN 20 MG TAB PO SCH (22:40)
[2023-05-31] MEDS: ACCU-CHEK COMFORT CURVE STRIP VI SCH ×3 (00:19→11:43)
[2023-05-31 05:00] VITALS: BP 148/63; PULSE 68; RESP 18; TEMP 98.7; O2SAT 98
[2023-05-31] MEDS: InsuLIN REG 1unit/0.01ml Soln (100units/ml) SC SCH ×3 (06:00→11:43)
[2023-05-31] MEDS: FUROSEMIDE 40 MG/4 ML VIAL IV SCH (06:01)
[2023-05-31] MEDS: SODIUM CHLOR 0.9% PF (SALINE LOCK) 10ML VIAL/SYR IV SCH ×2 (06:02→10:32)
[2023-05-31] MEDS: CEFEPIME 2GM/50ML NS 50 ML IV SCH (06:02)
[2023-05-31] MEDS: ACETAMINOPHEN 325 MG TAB PO PRN (06:48)
[2023-05-31 08:00] VITALS: PULSE 70
[2023-05-31] MEDS ORDERED: POTASSIUM CHL 20 Meq TABLET PO SCH (10:00)
[2023-05-31] MEDS: QUEtiapine FUMARATE 25 MG TAB PO SCH (10:24)
[2023-05-31] MEDS: PANTOPRAZOLE 40 MG/10 ML VIAL INJ IV SCH (10:24)
[2023-05-31] MEDS: METOPROLOL TARTRATE 50 MG TAB PO SCH (10:24)
[2023-05-31] MEDS: NIFEdipine ER 30 MG TAB PO SCH (10:24)
[2023-05-31] MEDS: AMIODARONE HCL 200 MG TAB PO SCH (10:25)
[2023-05-31] MEDS: LISINOPRIL 10 MG TAB PO SCH (10:26)
[2023-05-31] MEDS ORDERED: POTASSIUM CHL 20MEQ/100ML 100 ML IV SCH (10:45)
[2023-06-01] MEDS ORDERED: IOHEXOL 300 MG/ML 100ML BOTTLE IJ ONE (20:17)
== END 2023-05-31 11:50 | disposition left against medical advice (07) | DRG 720 ==
LOC: ER 22:47 → EDBD 22:47 → TELE 05-10 04:36 → ICU WEST 05-11 04:56 → TELE-WESTW 05-29 11:59
PROVIDERS: ADMIT Nurse Practitioner Family; ATTEND Internal Medicine Pulmonary Disease
PROC: 5A1955Z Respiratory Ventilation, Greater than 96 Consecutive Hours (ICD-10-PCS; principal; 2023-05-10)
PROC: 0BH17EZ Insertion of Endotracheal Airway into Trachea, Via Natural or Artificial Opening (ICD-10-PCS; 2023-05-10)
PROC: 02HV33Z Insertion of Infusion Device into Superior Vena Cava, Percutaneous Approach (ICD-10-PCS; 2023-05-15)
PROC: B548ZZA Ultrasonography of Superior Vena Cava, Guidance (ICD-10-PCS; 2023-05-15)
PROC: 0B9B8ZZ Drainage of Left Lower Lobe Bronchus, Via Natural or Artificial Opening Endoscopic (ICD-10-PCS; 2023-05-22)
PROC: 0B968ZZ Drainage of Right Lower Lobe Bronchus, Via Natural or Artificial Opening Endoscopic (ICD-10-PCS; 2023-05-22)
PROC: B246ZZ4 Ultrasonography of Right and Left Heart, Transesophageal (ICD-10-PCS; 2023-05-24)
DX: A41.9 Sepsis, unspecified organism (principal); I46.9 Cardiac arrest, cause unspecified; R65.21 Severe sepsis with septic shock; G92.8 Other toxic encephalopathy; I50.33 Acute on chronic diastolic (congestive) heart failure; J18.9 Pneumonia, unspecified organism; J96.01 Acute respiratory failure with hypoxia; J96.02 Acute respiratory failure with hypercapnia; I11.0 Hypertensive heart disease with heart failure; E87.20 Acidosis, unspecified; T40.411A Poisoning by fentanyl or fentanyl analogs, accidental (unintentional), initial encounter; Z20.822 Contact with and (suspected) exposure to COVID-19; I21.A1 Myocardial infarction type 2; E66.9 Obesity, unspecified; F14.10 Cocaine abuse, uncomplicated; I42.7 Cardiomyopathy due to drug and external agent; N17.9 Acute kidney failure, unspecified; I47.20 Ventricular tachycardia, unspecified; T40.2X5A Adverse effect of other opioids, initial encounter; I48.0 Paroxysmal atrial fibrillation; E87.6 Hypokalemia; E11.65 Type 2 diabetes mellitus with hyperglycemia; Z53.29 Procedure and treatment not carried out because of patient's decision for other reasons; Z98.84 Bariatric surgery status; K59.00 Constipation, unspecified; I16.0 Hypertensive urgency; E78.5 Hyperlipidemia, unspecified; Y92.89 Other specified places as the place of occurrence of the external cause; Z68.33 Body mass index [BMI] 33.0-33.9, adult
CPT/HCPCS: 31645; 36415; 36569; 36600; 70450; 71045; 71260; 74177; 76604; 76705; 80048; 80053; 80202; 80307; 80320; 81001; 82140; 82550; 82565; 82805; 82962; 83036; 83605; 83735; 83880; 84100; 84439; 84443; 84478; 84481; 84484; 85007; 85025; 85027; 85610; 85730; 86141; 86703; 86704; 86706; 86708; 86803; 87040; 87070; 87077; 87081; 87086; 87186; 87205; 87340; 87426; 87804; 92610; 93005; 93306; 93312; 94002; 94003; 97110; 97116; 97163; 99291; A4565; C9113; G0378; J0171; J0692; J0696; J1815; J2250; J2543; J2704; J3480; J3490; J7060; P9047